=== PATIENT | male | born 1955 | race Caucasian/White ===

== ENCOUNTER 2018-02-12 18:05 | Inpatient (IN) ==
[2018-02-12] MEDS ORDERED: Morphine Sulfate Inj 2 MG/ML Vial IV.PUSH ONE (19:06)
--- NOTE | 2018-02-12 19:14 | ED ---
HPI General Chief complaint: Abdominal Pain Stated complaint: Abdominal pain/Bloating x 2 months Time Seen by Provider: 02/12/18 19:01 Source: patient Mode of arrival: ambulatory Limitations: no limitations History of Present Illness HPI narrative: 62yo M with PMH of recently diagnosed melanoma s/p excision by Dr. Little on 02/08/18, GERD, kidney stone here with c/o abdominal distension and pain for the last few days. Pain is diffuse. He had recent PET scans that were concerning for metastatic disease. Dr. Little had ordered an outpatient CT a/p at [facility] yesterday but pt does not know the result yet. He complains of nausea. Denies any fever, chest pain, sob, vomiting, dysuria, hematuria, focal weakness or numbness. Related Data Home Medications Medication Instructions Recorded Confirmed levothyroxine [Synthroid] 137 mcg PO DAILY 01/03/18 02/12/18 losartan 0 mg PO DAILY 01/03/18 02/12/18 metoprolol tartrate 0 mg PO DAILY 01/03/18 02/12/18 Allergies Allergy/AdvReac Type Severity Reaction Status Date / Time azithromycin AdvReac Migraine Verified 02/12/18 18:08 [From Zithromax Z-Mitchel] Review of Systems ROS: all other systems reviewed are negative [facility] Medical History Medical History Melanoma (Acute) History of high blood pressure (Acute) Hx of thyroid disease (Acute) Surgical History Surgical History H/O thyroidectomy (Acute) Social History Social History Substance History: Active Abuse Smoking Status: Former smoker How Often Do You Have a Drink Containing Alcohol: 4 or more times a week Recent Travel in [facility] within the Last 8 Weeks: No Recent Out of Country Travel within the Last 8 Weeks: No Substance Abuse Detail Alcohol: Substance Use Status: Active Route Used Substance Abuse: By Mouth Substance Frequency: Wine daily Immunization History Tetanus Immunization: >5 Years Exam Narrative Exam Narrative: GENERAL: 62yo M in mild distress. SKIN: Focused skin assessment warm/dry. HEAD: Atraumatic. Normocephalic. EYES: Pupils equal and round. No scleral icterus. No injection or drainage. ENT: No nasal bleeding or discharge. Mucous membranes pink and moist. NECK: Trachea midline. No JVD. CARDIOVASCULAR: Regular rate and rhythm. No murmur appreciated. RESPIRATORY: No accessory muscle use. Clear to auscultation. Breath sounds equal bilaterally. GASTROINTESTINAL: Abdomen softly distended. Mild ttp diffusely. No rebound tenderness or guarding. MUSCULOSKELETAL: Right shoulder sutures in place, no erythema, discharge. No obvious deformities. No clubbing. No cyanosis. NEUROLOGICAL: Awake and alert. No obvious cranial nerve deficits. Motor grossly within normal limits. Normal speech. PSYCHIATRIC: Appropriate mood and affect; insight and judgment normal. Course Initial Documented Vital Signs Temperature 99.2 F 02/12/18 18:09 Pulse Rate 89 02/12/18 18:09 Respiratory Rate 16 02/12/18 18:09 Blood Pressure 166/96 H 02/12/18 18:09 Pulse Oximetry 96 02/12/18 18:09 Last Documented Vital Signs Temperature 97.7 F 02/12/18 23:45 Pulse Rate 84 02/13/18 01:11 Respiratory Rate 14 02/13/18 01:11 Blood Pressure 125/83 02/13/18 01:11 Pulse Oximetry 98 02/13/18 01:11 Critical Care Time Critical Care Time: Yes Total Critical Care Time: 45 Attestation: Aggregate critical care time was 45 minutes. Time to perform other separately billable procedures was not included in the critical care time. My time did not include minutes spent treating any other patients simultaneously or on activities that did not directly contribute to the patient's treatment. The services I provided to this patient were to treat and/or prevent clinically significant deterioration that could result in: cardiovascular collapse or . I provided critical care services requiring my management, as noted below: Chart data review, documentation time, medication orders and management, vital sign assessments/reviewing monitor data, ordering and reviewing lab tests, ordering and interpreting/reviewing x-rays and diagnostic studies, care of the patient and discussion of the patient with the admitting physicians. Medical Decision Making MDM Narrative Medical decision making narrative: 62yo M with recently diagnosed melanoma s/p resection. Pt has been having abdominal pain and distension so his general surgeon Dr. Little ordered a CT a/p as outpatient and I was able to view the CT a/p w/wo contrast from [facility]. It showed abnormal appearance of distal thoracic esophagus and GE junction. This is hypermetabolic on recent PET and suspicious for a primary malignancy. Gastrohepatic lymphadenopathy, extensive omental caking and peritoneal carcinomatosis with a moderate amount of free fluid. This is likely the cause of his pain and distension. Will give pt IV morphine and zofran. Since pt just had a CT a/p yesterday, will just obtain an xray abdomen to r/o obstruction. Upon further questioning, pt said his abdominal distension has been going on for about a month. Last bowel movement was yesterday. Labs reviewed, no leukocytosis. H/H 11.7/36.6 which is decreased from last month. CMP unremarkable. Lipase normal. At 8:27pm, my nurse informed me that pt started complaining of chest pain. When I went to evaluate pt, he said pain is midsternal, sharp and pt is diaphoretic. EKG ordered and showed ST elevation in II, III, aVF and V4, V5. There is mild ST depression in I, aVL. Pt given aspirin, sublingual nitro and heparin bolus. Discussed with braided band assembler Dr. Pierce and accepted to his service. Pt will be emergently transferred to the cardiac laboratory [facility]. Pt reevaluated at bedside and his chest pain has improved to about a 2 out of 10 now. BP did go down to systolic in the 80s after nitroglycerin but improved to 133/76 after NS IVF. Pt denies any shortness of breath but is on oxygen. Troponin was added to the first lab and is elevated at 0.30. CXR negative. After patient went into the ambulance, [facility] called and pt was in vfib arrest. Pt was immediately defibrillated and compressions started. Pt opened his eyes and is awake and breathing on his own immediately after the defibrillation. No medication was given. Pt is on his way to the cardiac laboratory [facility] with his nurse. I informed Dr. Pierce of this event. Pt being transported to cardiac laboratory [facility] emergently. Medical Screen Exam Complete: Yes Emergency Medical Condition: Yes Differential Diagnosis Differential Diagnosis: Metastatic disease vs. obstruction vs. colitis vs. pancreatitis Lab Data Result diagrams: 02/12/18 19:10 02/12/18 19:10 Lab Results 02/12/18 02/12/18 02/12/18 Range/Units 19:10 19:10 19:28 CBC w Diff Auto diff final WBC 8.4 (4.0-11.0) th/mm3 RBC 4.14 L (4.50-5.90) mil/mm3 Hgb 11.7 L (13.0-17.0) gm/dL Hct 36.6 L (39.0-51.0) % MCV 88.4 (80.0-100.0) fL MCH 28.4 (27.0-34.0) pg MCHC 32.0 (32.0-36.0) % RDW 13.6 (11.6-17.2) % Plt Count 564 H (150-450) th/mm3 MPV 7.6 (7.0-11.0) fL Neut % (Auto) 77.4 H (16.0-70.0) % Lymph % (Auto) 13.7 (9.0-44.0) % [place] % (Auto) 7.6 (0.0-8.0) % Eos % (Auto) 0.9 (0.0-4.0) % Baso % (Auto) 0.4 (0.0-2.0) % Neut # (Auto) 6.5 (1.8-7.7) th/mm3 Lymph # (Auto) 1.2 (1.0-4.8) th/mm3 [place] # (Auto) 0.6 (0.0-0.9) th/mm3 Eos # (Auto) 0.1 (0.0-0.4) th/mm3 Baso # (Auto) 0.0 (0.0-0.2) th/mm3 WBC Differential . Differential Comment . PT (9.8-11.6) sec INR Ratio APTT (23.4-31.7) sec Sodium 136 (136-145) meq/L Potassium 4.1 (3.5-5.1) meq/L Chloride 101 (98-107) meq/L Carbon Dioxide 28.6 (21.0-32.0) meq/L Anion Gap 6 (5-15) meq/L BUN 7 (7-18) mg/dL Creatinine 0.76 (0.60-1.30) mg/dL Estimated GFR Greater than 89 (>89) mL/min Random Glucose 125 H (74-106) mg/dL Calcium 9.6 (8.5-10.1) mg/dL Magnesium (1.5-2.5) mg/dL Total Bilirubin 0.3 (0.2-1.0) mg/dL AST 19 (15-37) U/L ALT 18 (12-78) U/L Alkaline Phosphatase 66 (45-117) U/L Troponin I (0.02-0.05) ng/mL Total Protein 7.0 (6.4-8.2) g/dL Albumin 2.8 L (3.4-5.0) g/dL Lipase 131 (73-393) U/L Urine Color Yellow (Yellw/Straw) Urine Clarity Clear (Clear) Urine pH 5.5 (5.0-8.5) Ur Specific [place] Greater/equal 1.030 (1.002-1.035) Urine Protein Negative (Neg-Trace) mg/dL Urine Glucose (UA) Negative (Negative) mg/dL Urine Ketones Negative (Negative) mg/dL Urine Occult Blood Negative (Negative) Urine Nitrate Negative (Negative) Urine Bilirubin Negative (Negative) Urine Urobilinogen 0.2 (Less than 2) mg/dL Ur Leukocyte Esterase Negative (Negative) Urine RBC 0-3 (0-3) /hpf Urine WBC 0-5 (0-5) /hpf Ur Squamous Epith Cells 0-5 (0-5) /hpf Urine Mucus Many H (Occasional) /lpf Micro UA Comment Culture not ind Ur Microscopic Review Microscopic reviewed Urine Culture Comments Culture not ind Nasal Screen MRSA (PCR) (Negative) 02/12/18 02/12/18 02/12/18 Range/Units 20:31 20:40 20:52 CBC w Diff WBC (4.0-11.0) th/mm3 RBC (4.50-5.90) mil/mm3 Hgb (13.0-17.0) gm/dL Hct (39.0-51.0) % MCV (80.0-100.0) fL MCH (27.0-34.0) pg MCHC (32.0-36.0) % RDW (11.6-17.2) % Plt Count (150-450) th/mm3 MPV (7.0-11.0) fL Neut % (Auto) (16.0-70.0) % Lymph % (Auto) (9.0-44.0) % [place] % (Auto) (0.0-8.0) % Eos % (Auto) (0.0-4.0) % Baso % (Auto) (0.0-2.0) % Neut # (Auto) (1.8-7.7) th/mm3 Lymph # (Auto) (1.0-4.8) th/mm3 [place] # (Auto) (0.0-0.9) th/mm3 Eos # (Auto) (0.0-0.4) th/mm3 Baso # (Auto) (0.0-0.2) th/mm3 WBC Differential Differential Comment PT 10.3 (9.8-11.6) sec INR 1.0 Ratio APTT 27.0 (23.4-31.7) sec Sodium (136-145) meq/L Potassium (3.5-5.1) meq/L Chloride (98-107) meq/L Carbon Dioxide (21.0-32.0) meq/L Anion Gap (5-15) meq/L BUN (7-18) mg/dL Creatinine (0.60-1.30) mg/dL Estimated GFR (>89) mL/min Random Glucose (74-106) mg/dL Calcium 9.6 (8.5-10.1) mg/dL Magnesium 2.4 (1.5-2.5) mg/dL Total Bilirubin (0.2-1.0) mg/dL AST (15-37) U/L ALT (12-78) U/L Alkaline Phosphatase (45-117) U/L Troponin I 0.30 H (0.02-0.05) ng/mL Total Protein (6.4-8.2) g/dL Albumin (3.4-5.0) g/dL Lipase (73-393) U/L Urine Color (Yellw/Straw) Urine Clarity (Clear) Urine pH (5.0-8.5) Ur Specific [place] (1.002-1.035) Urine Protein (Neg-Trace) mg/dL Urine Glucose (UA) (Negative) mg/dL Urine Ketones (Negative) mg/dL Urine Occult Blood (Negative) Urine Nitrate (Negative) Urine Bilirubin (Negative) Urine Urobilinogen (Less than 2) mg/dL Ur Leukocyte Esterase (Negative) Urine RBC (0-3) /hpf Urine WBC (0-5) /hpf Ur Squamous Epith Cells (0-5) /hpf Urine Mucus (Occasional) /lpf Micro UA Comment Ur Microscopic Review Urine Culture Comments Nasal Screen MRSA (PCR) (Negative) 02/12/18 Range/Units 23:40 CBC w Diff WBC (4.0-11.0) th/mm3 RBC (4.50-5.90) mil/mm3 Hgb (13.0-17.0) gm/dL Hct (39.0-51.0) % MCV (80.0-100.0) fL MCH (27.0-34.0) pg MCHC (32.0-36.0) % RDW (11.6-17.2) % Plt Count (150-450) th/mm3 MPV (7.0-11.0) fL Neut % (Auto) (16.0-70.0) % Lymph % (Auto) (9.0-44.0) % [place] % (Auto) (0.0-8.0) % Eos % (Auto) (0.0-4.0) % Baso % (Auto) (0.0-2.0) % Neut # (Auto) (1.8-7.7) th/mm3 Lymph # (Auto) (1.0-4.8) th/mm3 [place] # (Auto) (0.0-0.9) th/mm3 Eos # (Auto) (0.0-0.4) th/mm3 Baso # (Auto) (0.0-0.2) th/mm3 WBC Differential Differential Comment PT (9.8-11.6) sec INR Ratio APTT (23.4-31.7) sec Sodium (136-145) meq/L Potassium (3.5-5.1) meq/L Chloride (98-107) meq/L Carbon Dioxide (21.0-32.0) meq/L Anion Gap (5-15) meq/L BUN (7-18) mg/dL Creatinine (0.60-1.30) mg/dL Estimated GFR (>89) mL/min Random Glucose (74-106) mg/dL Calcium (8.5-10.1) mg/dL Magnesium (1.5-2.5) mg/dL Total Bilirubin (0.2-1.0) mg/dL AST (15-37) U/L ALT (12-78) U/L Alkaline Phosphatase (45-117) U/L Troponin I (0.02-0.05) ng/mL Total Protein (6.4-8.2) g/dL Albumin (3.4-5.0) g/dL Lipase (73-393) U/L Urine Color (Yellw/Straw) Urine Clarity (Clear) Urine pH (5.0-8.5) Ur Specific [place] (1.002-1.035) Urine Protein (Neg-Trace) mg/dL Urine Glucose (UA) (Negative) mg/dL Urine Ketones (Negative) mg/dL Urine Occult Blood (Negative) Urine Nitrate (Negative) Urine Bilirubin (Negative) Urine Urobilinogen (Less than 2) mg/dL Ur Leukocyte Esterase (Negative) Urine RBC (0-3) /hpf Urine WBC (0-5) /hpf Ur Squamous Epith Cells (0-5) /hpf Urine Mucus (Occasional) /lpf Micro UA Comment Ur Microscopic Review Urine Culture Comments Nasal Screen MRSA (PCR) Not detected (Negative) Imaging Data Radiologist's impression: Abdomen X-Ray 02/12/18 19:18 CONCLUSION: No acute findings. There is residual contrast in large bowel. Chest X-Ray 02/12/18 20:27 CONCLUSION: No acute findings. Discharge Plan Discharge Disposition Patient Disposition: ED Admit(ED Internal Use Only) Discharge Order Discharge Orders: ED Use Only Admit Order (Routine); Ordered 02/12/18 Ordered By: Danielle Dover Discharge Details Diagnosis: ST elevation (STEMI) myocardial infarction Physicians Team ED Provider: Danielle Dover Primary Care Provider: Jones Little Attending Provider: Srinath Pierce Other Providers: Edward Hawk Status ED Status: Left Department Discharge Information Discharge Date/Time: 02/12/18 21:07
[2018-02-12] MEDS ORDERED: Morphine Sulfate Inj 2 MG/ML Vial IM ONE (19:39)
[2018-02-12 19:43] LABS: Bilirubin,Urine Negative (Negative); Clarity,Urine Clear (Clear); Color,Urine Yellow (Yellw/Straw); Glucose,Urine (UA) Negative (Negative); Leukocyte Esterase,Urine Negative (Negative); Nitrite,Urine Negative (Negative); PH,Urine 5.5 (5.0-8.5); Specific Gravity,Urine Greater/Equal 1.030 (1.002-1.035); Urobilinogen,Urine 0.2 mg/dL (Less than 2)
[2018-02-12 19:48] LABS: Mucus,Urine Many /lpf (Occasional); RBC,Urine 0-3 /hpf (0-3); Squamous Epithelial Cell,Urine 0-5 /hpf (0-5); WBC,Urine 0-5 /hpf (0-5)
[2018-02-12 20:14] LABS: Baso % (Auto) 0.4 % (0.0-2.0); Eos # (Auto) 0.1 th/mm3 (0.0-0.4); Eos % (Auto) 0.9 % (0.0-4.0); Hematocrit 36.6 % (39.0-51.0); Hemoglobin 11.7 gm/dL (13.0-17.0); Lymph # (Auto) 1.2 th/mm3 (1.0-4.8); Lymph % (Auto) 13.7 % (9.0-44.0); Mean Corpuscular Hemoglobin 28.4 pg (27.0-34.0); Mean Corpuscular Volume 88.4 fL (80.0-100.0); Mean Platelet Volume 7.6 fL (7.0-11.0); Mono # (Auto) 0.6 th/mm3 (0.0-0.9); Mono % (Auto) 7.6 % (0.0-8.0); Neut # (Auto) 6.5 th/mm3 (1.8-7.7); Neut % (Auto) 77.4 % (16.0-70.0); Platelet Count 564 th/mm3 (150-450); Red Blood Count 4.14 mil/mm3 (4.50-5.90); Red Cell Distribution Width 13.6 % (11.6-17.2); White Blood Count 8.4 th/mm3 (4.0-11.0)
[2018-02-12 20:15] LABS: Chloride 101 meq/L (98-107); Potassium 4.1 meq/L (3.5-5.1); Sodium 136 meq/L (136-145)
--- NOTE | 2018-02-12 20:15 | XR ---
EXAM DATE: 02/12/2018 8:06 PM EST AGE/SEX: 62 years / Male INDICATIONS: Abdominal pain and distention. No bowel movement for four days. CLINICAL DATA: This is the patient's initial encounter. Patient reports that signs and symptoms have been present for 4 - 6 days and indicates a pain score of 10/10. MEDICAL/SURGICAL HISTORY: Hypertension. None. COMPARISON: No prior exams available for comparison. FINDINGS: Supine and upright views of the abdomen were performed. The abdominal bowel gas pattern is normal. No air-fluid levels are seen. No abnormal masses, calcifications, or organomegaly is seen. The visualiz ed lower lungs are clear. No evidence of free intraperitoneal gas. The osseous structures are unremar kable. CONCLUSION: No acute findings. There is residual contrast in large bowel. Electronically signed by: Daniel Abreu MD 02/12/2018 8:13 PM EST
[2018-02-12 20:18] LABS: Calcium 9.6 mg/dL (8.5-10.1)
[2018-02-12 20:19] LABS: Albumin 2.8 g/dL (3.4-5.0); Anion Gap 6 meq/L (5-15); Blood Urea Nitrogen 7 mg/dL (7-18); Carbon Dioxide 28.6 meq/L (21.0-32.0); Glucose,Random 125 mg/dL (74-106); Lipase 131 U/L (73-393)
[2018-02-12 20:21] LABS: Alanine Aminotransferase 18 U/L (12-78); Aspartate Aminotransferase 19 U/L (15-37)
[2018-02-12 20:22] LABS: Glomerular Filtration Rate Greater Than 89 mL/min (>89)
[2018-02-12 20:24] LABS: Alkaline Phosphatase 66 U/L (45-117)
[2018-02-12] MEDS ORDERED: Aspirin 325 MG Tablet PO ONE (20:39)
[2018-02-12] MEDS ORDERED: Heparin 10,000 UNITS/10 ML Vial (for IV use) IV.PUSH STA (20:43)
--- NOTE | 2018-02-12 20:44 | XR ---
EXAM DATE: 02/12/2018 8:41 PM EST AGE/SEX: 62 years / Male INDICATIONS: Stemi alert. Chest pain. CLINICAL DATA: This is the patient's initial encounter. Patient reports that signs and symptoms have been present for 1 day and indicates a pain score of 9/10. MEDICAL/SURGICAL HISTORY: Hypertension. None. COMPARISON: No prior exams available for comparison. FINDINGS: A single AP view of the chest demonstrates the lungs to be symmetrically aerated without evidence of mass, infiltrate or effusion. The cardiomediastinal contours are unremarkable. Osseous structures a re intact. CONCLUSION: No acute findings. Electronically signed by: Daniel Abreu MD 02/12/2018 8:43 PM EST
[2018-02-12] MEDS ORDERED: Sod Chloride 0.9% Inj 1,000 ML IV.SIG SCH (21:00)
[2018-02-12 21:12] LABS: Calcium 9.6 mg/dL (8.5-10.1); Magnesium 2.4 mg/dL (1.5-2.5)
[2018-02-12 21:15] LABS: Prothrombin Time 10.3 sec (9.8-11.6)
[2018-02-12] MEDS ORDERED: Iohexol 350 MG/ML 100 ML Vial (for Cath Lab) IVCONTRAST ONE (21:23)
[2018-02-12] MEDS ORDERED: Heparin/NS PF Inj 1,000 ML ONE (21:25)
[2018-02-12] MEDS ORDERED: fentaNYL Citrate Inj 100 MCG/2 ML Ampul ONE (21:40)
[2018-02-12] MEDS ORDERED: Heparin/NS PF Inj 500 ML ONE (22:11)
[2018-02-12] MEDS ORDERED: Cangrelor Inj 50,000 MCG Vial ONE (22:46)
--- NOTE | 2018-02-12 23:22 | CATHPROC ---
[employer] [facility] Report Study Information Study Number Admission Scheduled Start Study Start [id number] Feb 12 2018 6:05PM 02/12/2018 Feb 12 2018 9:18PM [place] [facility] Cardiac Catheterization Admit Source Facility Department Emergency department [facility] - Bag Loader Machine Operator Physician and Clinical Staff Initial Srinath Roberts Retirement Actuary Nitesh Eduardo RCIS(BS) Retirement Actuary Jama Perla,RN Recorder Brayan Alegria,RT(R) Scrub Shanel Rajput RCIS TECH2 Procedures Performed Procedure Location (Site) Vessel Name Angiogram LV LV Ventricle Coronary Angiograms LCA Left Coronary Coronary Angiograms RCA Right Coronary L Heart Cath PTCA LAD Mid Left Coronary PTCA LAD Prox Left Coronary Stent LAD Mid Left Coronary Stent LAD Prox Left Coronary Wire insertion Fem Art (right) Femoral Art Equipment Time Mud Grinder Description Size Mfg Part Number Used/Scraped PERCLOSE, PRO GLIDE CLOSER 22:59 [employer]KES [employer] FR 6 [id number] *[id number] Used DEVICE WIRE, BALANCE MIDDLEWEIGHT [id number] 22:31 [employer] 190CM Used 190CM *[id number] WIRE, BALANCE MIDDLEWEIGHT [id number] 22:00 [employer] 190CM Used 190CM *[id number] TRANSDUCER, TRUWAVE [id number] 21:24 WILDER HURD * Used W/STOCKCOCK *[id number] [id number] *[id number] [id number] *[id number] *[id number] *[id number] 21:24 Quantine BLANKET,WARM AIR CCL * Used *[id number] 21:24 [employer]ine PACK, CCL CUSTOM * Used *[id number] 21:24 Rise Art PACER PEN, SKIN DUAL W/ RULER * Used *[id number] 22:17 MEDTRONIC BALLOON, 2.0 X 12MM EUPHORA 12MM Used *[id number] BALLOON, 3.5 X 8MM NC [id number] 22:45 MEDTRONIC 8MM Used EUPHORA *[id number] EXPORTAP 22:02 MEDTRONIC CATHETER, EXPORT ASPIRATON Used *[id number] 22:24 MEDTRONIC STENT, 2.5 26 INTEGRITY 2.5 26 Used *[id number] 22:34 MEDTRONIC STENT, 3.5 12 INTEGRITY 3.5 12 Used *[id number] 22:18 Heppe Medical Chitosan MEDICAL 30 YANET INDEFLATOR Used *[id number] 22:03 [employer] MEDICAL SHEATH, FR6.5 PRELUDE 11CM FR 6.5 [id number] Used *[id number] 21:24 [employer] Ch[employer] MEDICAL WIRE, 3MMJ .035 180CM 180CM Used *[id number] PROBE COVER, STERILE [id number] 21:24 [employer] MEDICAL * Used ULTRASOUND W/ GEL *[id number] 21:24 NAMIC MANIFOLD, 4 PORT * Used *[id number] 21:24 NAMIC TUBING, HIGH PRESSURE 48" 48" Used *[id number] 21:24 NYCOMED OMNIPAQUE, 350 MG, 150ML 150ML [id number] Used 22:51 NYCOMED OMNIPAQUE, 350 MG, 50ML 50ML [id number] Used [id number] 21:24 TERUMO MEDICAL SHEATH, FR5 TERUMO (10CM) FR 5 Used *[id number] Equipment Model, Serial, Lot Number and Expiration Data Description Model Number Serial Number Lot Number Expiration Date BALLOON, 3.5 X 8MM NC EUPHORA [id number] 04-25-2019 CATHETER, EXPORT ASPIRATON [id number] 11-14-2019 STENT, 2.5 26 INTEGRITY [id number] 05-24-2019 STENT, 3.5 12 INTEGRITY [id number] 09-04-2019 History: Current Medications Medication Dosage/Unit Route Frequency Last Date/Time Taken 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 History: Allergies Allergy Reaction azithromycin Migraine History: Risk Factors Family History of Hypertension Dyslipidemia Previous NE Previous Heart Failure Premature CAD Yes No No No No Prior Valve Prior PCI Prior CABG Surgery No No No Cerebrovascular Peripheral Artery Chronic Lung On Dialysis Diabetes Disease Disease Disease No No No No No History: Symptoms/Diagnosis Selection Items Chest pain History: Stress Tests Stress or Imaging Studies Performed No History: Other Disease Selection Items Cancer HTN History: Other Current Smoker Method Quit Packs a Day Years Used Pack Years No Cigarettes 1 Years Ago 1 25 25 Labs Hgb (g/dl) Hct (%) RBC (MIL/MM3) WBC (l/cumm) Platelets (thousands) 11.60-17.00 35.00-51.00 4.00-5.90 4.00-11.00 150.00-450.00 11.7 36.6 4.1 8.4 500 Glucose (mg/dl) BUN (mg/dl) Creatinine (mg/dl) BUN:Creatinine (1:x) 74.00-106.00 7.00-18.00 0.50-1.30 10.00-20.00 125 7 0.7 10 Na (meq/l) K (meq/l) Cl (meq/l) CO2 (mmol/L) Ca (mg/dl) 136.00-145.00 3.50-5.10 98.00-107.00 21.00-32.00 8.50-10.10 136 4.1 101 28.6 9.6 PT (sec) PTT (sec) INR (PTT:PT) 9.80-11.60 24.30-30.10 0.90-1.10 10.3 27 1 Troponin I (ng/ml) CPK-MB (ng/ML) 0.02-0.05 0.50-3.60 0.3 Not Drawn Medication Medication Total Dose (Bolus/Oral) Medication Total Dosage/Unit 1% XYLOCAINE 20 mL BRILLINTA 180 mg HEPARIN 6000 units NTG (IC) 500 mcg Medications (Bolus/Oral) Medication Time Given Dosage/Unit Administered By Reason 1% XYLOCAINE 02/12/2018 9:54:16 PM 20 mL Srinath Pierce 20 mL 1% XYLOCAINE given in lab by Srinath Pierce in Right Groin via Subcutaneous. 02/12/2018 10:11:02 HEPARIN 6000 units Srinath Pierce PM 6000 units HEPARIN given in lab by Srinath Pierce in Right Antecubital via Peripheral IV. 02/12/2018 10:13:47 NTG (IC) 200 mcg Shanel Rajput PM 200 mcg NTG (IC) given in lab by Shanel Rajput RCIS TECH2 via Intra-coronary. 02/12/2018 10:27:41 NTG (IC) 100 mcg Shaenl Rajput PM 100 mcg NTG (IC) given in lab by Shanel Rajput RCIS TECH2 via Intra-coronary. 02/12/2018 10:48:04 NTG (IC) 200 mcg Shanel Rajput PM 200 mcg NTG (IC) given in lab by [place], Shanel, RUBY ON RAILS ENGINEER TECH2 via Intra-coronary. 02/12/2018 11:00:00 BRILLINTA 180 mg Jama Perla PM 180 mg BRILLINTA given in lab by Jama Perla, SHANNON in Per mouth via Oral. Medication (Drip) Medication Time Given Dosage/Unit Concentration/Unit Diluent (ml) Solution IV Solutions 02/12/2018 9:36:52 PM 0 mL (IV) 1000 NaCl .9 Patient arrived on IV Solutions in Right Antecubital via Peripheral IV. Pump/Drip Flow = 20 ml/hr usi ng NaCl .9. 02/12/2018 10:50:43 KENGREAL BOLUS 14 mL PM 14 mL KENGREAL BOLUS given in lab by Jama Perla, SHANNON in Right Antecubital via Peripheral IV. 02/12/2018 10:56:56 KENGREAL DRIP 4 mcg/kg/min 50 mg 250 NaCl .9 PM 4 mcg/kg/min KENGREAL DRIP given in lab by Jama Perla RN in Right Antecubital via Peripheral IV. Pump/Drip Flow = 113.16 ml/hr using NaCl .9 with a concentration of 50 mg in 250 ml. Initial Case Assessment Cardiovascular HR Rhythm NIBP Chest Pain 84 Irregular 128/91 2 Edema Present Skin color Skin None Normal Warm Dry Circulatory - Right Pulses Dorsalis Pedis Femoral 2 2 Scale (0,1,2,3,4,d) Circulatory - Left Pulses Dorsalis Pedis Femoral 2 2 Scale (0,1,2,3,4,d) Neurological State Oriented to time-place- Alert Moves all extremities person Respiration - General Respiration Rate SpO2 (%) O2 (lpm) (B/min) 21 93 0 Final Case Assessment Cardiovascular HR Rhythm NIBP Chest Pain 81 Sinus 135/91 0 Edema Present Skin color Skin None Normal Warm Dry Circulatory - Right Pulses Dorsalis Pedis Femoral 2 2 Scale (0,1,2,3,4,d) Circulatory - Left Pulses Dorsalis Pedis Femoral 2 2 Scale (0,1,2,3,4,d) Neurological State Oriented to time-place- Alert Moves all extremities person Respiration - General Respiration Rate SpO2 (%) O2 (lpm) (B/min) 16 98 0 Chronological Log Time Study Chronological Log 21:23:10 Emergency Room notified that Bag Loader Machine Operator is ready. 21:31:23 Patient arrived via Bed. 21:36:28 Patient Name, D.O.B, / Armband Verified By R.N. 21:36:28 Consent signed by the physician and the patient and verified by the Bag Loader Machine Operator staff. 21:36:29 Pre-op and post- op instructions given; patient acknowledges understanding of instructions. 21:36:29 Verbal Stimulation=2 Physical Stimulation=2 Airway=2 Respiration=2 TOTAL=8. (0=absent, 1=li mited, 2=present) 21:36:30 Presedation assessment performed by Bag Loader Machine Operator RN. 21:36:36 Patient has been NPO for Less than 6Hrs. 21:36:37 Skin Breakdown- none per patient. 21:36:38 Patient Warmer Placed on the Table. 21:36:41 Disposable Defibrillator Pads Placed On Patient. 21:36:42 Haroon Prominences Protected 21:36:44 A # 20 IV was noted in the Antecubital (left). Grade = 0 21:36:51 A # 20 IV was noted in the Antecubital (right). Grade = 0 21:36:52 Patient arrived on IV Solutions in Right Antecubital via Peripheral IV. Pump/Drip Flow = 20 ml/hr using NaCl .9. 21:36:57 History and physical on the chart or being dictated. Assessment: Initial Case, HR=84 BPM, Rhythm=Irregular, CINU=769/91 mmhg, Chest Pain=2, Edema=No ne, Color=Normal, Skin = Warm, Dry Right Pulses: Leonidas Ped=2, Femoral=2 21:36:58 Left Pulses: Leonidas Ped=2, Femoral=2 Neurological: State=Alert, Ox3, RINALDI Respiration: Resp=21 B/min, SpO2=93 %, O2=0 lpm Vitals capture started with the following parameters, Patient=Adult, Interval=5 min, Initial Pr baekgl=518 mmHg, 21:37:00 Deflation Rate=5 mmHg, Cuff placed on Right Arm 21:37:30 Reference ECG taken 21:37:34 HR=83 bpm, PBAC=621/91 mmhg, SpO2=93.0 %, Resp=23 B/min, Pain=2, Tanna=10, De Souza=2 21:38:27 paged 21:39:46 Bilateral groins prepped with 2% chlorhexidine, and draped after a 3 minute waiting time. 21:41:45 MD responded 21:42:37 HR=83 bpm, TMVP=431/90 mmhg, SpO2=93.0 %, Resp=15 B/min, Pain=2, Tanna=10, De Souza=2 21:43:15 Pressure channel 1 zeroed. 21:47:34 HR=81 bpm, DSXZ=320/93 mmhg, SpO2=92.0 %, Resp=11 B/min, Pain=2, Tanna=10, De Souza=2 21:48:50 MD arrived. 21:52:35 HR=82 bpm, QQDU=753/93 mmhg, SpO2=98.0 %, Resp=9 B/min, Pain=2, Tanna=10, De Souza=2 Time Out. Correct patient, correct procedure, correct physician, labs, allergies, and equipment verified with laboratory director 21:53:37 team present. Fire risk assesment completed (see hard stop sheet for coding). Time Out Conc urred by MD and individual staff in procedure. 21:54:16 Case Start 21:54:16 20 mL 1% XYLOCAINE given in lab by Srinath Pierce in Right Groin via Subcutaneous. 21:54:26 Access site was Right Femoral Artery. 21:54:52 A SHEATH, FR5 TERUMO (10CM) FR 5 was advanced into the Fem Art (right) using the Percutaneo us technique. A AR MOD INFINITI CATHETER FR 5 was advanced over a wire. OMNIPAQUE, 350 MG, 150ML 150ML was us ed for 21:55:43 injections. Recorded Pressure: Ao, HR=82, Condition=Condition 1 21:56:44 (Aorta) Ao 110/75/91 21:57:01 The RCA was injected and visualized at various angles. OMNIPAQUE, 350 MG, 150ML 150ML used . 21:57:38 HR=75 bpm, DBAH=434/83 mmhg, SpO2=98.0 %, Resp=8 B/min, Pain=2, Tanna=10, De Souza=2 21:58:02 Catheter was removed A JL 4.0 INFINITI CATHETER FR 5 was advanced over a wire. OMNIPAQUE, 350 MG, 150ML 150ML was us ed for 21:58:10 injections. 21:59:10 The LCA was injected and visualized at various angles. OMNIPAQUE, 350 MG, 150ML 150ML used . 22:01:51 Catheter was removed A SHEATH, FR6.5 PRELUDE 11CM FR 6.5 was exchanged in the Fem Art (right). This was necessary in order to 22:02:17 accomodate a larger catheter. 22:02:37 HR=85 bpm, KREB=227/85 mmhg, SpO2=98.0 %, Resp=9 B/min, Pain=2, Tanna=10, De Souza=2 A XB 4.0 GUIDE CATHETER FR 6 was advanced over a wire. OMNIPAQUE, 350 MG, 150ML 150ML was used for 22:04:53 injections. 22:07:14 A WIRE, BALANCE MIDDLEWEIGHT 190CM 190CM was inserted via Fem Art (right). 22:07:38 HR=83 bpm, XZYL=443/92 mmhg, SpO2=99.0 %, Resp=11 B/min, Pain=2, Tanna=10, De Souza=2 22:09:21 Interventional wire has crossed the lesion 22:10:47 Aspiration catheter inserted 22:11:02 6000 units HEPARIN given in lab by Srinath Pierce in Right Antecubital via Peripheral IV. 22:11:27 Aspiration in progress 22:12:37 Catheter was removed 22:12:39 HR=85 bpm, KSKR=114/83 mmhg, SpO2=99.0 %, Resp=18 B/min, Pain=2, Tanna=10, De Souza=2 22:13:47 200 mcg NTG (IC) given in lab by Shanel Rajput RCIS TECH2 via Intra-coronary. A BALLOON, 2.0 X 12MM EUPHORA 12MM was inserted over WIRE, BALANCE MIDDLEWEIGHT 190CM 190CM via the 22:15:01 LAD Mid. A BALLOON, 2.0 X 12MM EUPHORA 12MM over a WIRE, BALANCE MIDDLEWEIGHT 190CM 190CM in the LAD Mid was 22:17:17 inflated using a 30 YANET INDEFLATOR at 16 yanet for 10 sec. 22:17:38 HR=85 bpm, TTNY=231/85 mmhg, SpO2=96.0 %, Resp=25 B/min, Pain=2, Tanna=10, De Souza=2 A BALLOON, 2.0 X 12MM EUPHORA 12MM over a WIRE, BALANCE MIDDLEWEIGHT 190CM 190CM in the LAD Mid was 22:17:48 inflated using a 30 YANET INDEFLATOR at 16 yanet for 14 sec. A BALLOON, 2.0 X 12MM EUPHORA 12MM over a WIRE, BALANCE MIDDLEWEIGHT 190CM 190CM in the LAD Mid was 22:18:01 inflated using a 30 YANET INDEFLATOR at 16 yanet for 8 sec. A BALLOON, 2.0 X 12MM EUPHORA 12MM over a WIRE, BALANCE MIDDLEWEIGHT 190CM 190CM in the LAD Mid was 22:18:15 inflated using a 30 YANET INDEFLATOR at 16 yanet for 8 sec. A BALLOON, 2.0 X 12MM EUPHORA 12MM over a WIRE, BALANCE MIDDLEWEIGHT 190CM 190CM in the LAD Mid was 22:18:26 inflated using a 30 YANET INDEFLATOR at 16 yanet for 8 sec. A BALLOON, 2.0 X 12MM EUPHORA 12MM over a WIRE, BALANCE MIDDLEWEIGHT 190CM 190CM in the LAD Mid was 22:20:07 inflated using a 30 YANET INDEFLATOR at 16 yanet for 12 sec. A BALLOON, 2.0 X 12MM EUPHORA 12MM over a WIRE, BALANCE MIDDLEWEIGHT 190CM 190CM in the LAD Mid was 22:20:20 inflated using a 30 YANET INDEFLATOR at 16 yanet for 12 sec. A BALLOON, 2.0 X 12MM EUPHORA 12MM over a WIRE, BALANCE MIDDLEWEIGHT 190CM 190CM in the LAD Mid was 22:20:37 inflated using a 30 YANET INDEFLATOR at 16 yanet for 8 sec. A BALLOON, 2.0 X 12MM EUPHORA 12MM over a WIRE, BALANCE MIDDLEWEIGHT 190CM 190CM in the LAD Mid was 22:20:51 inflated using a 30 YANET INDEFLATOR at 16 yanet for 9 sec. 22:21:18 The LCA was injected and visualized at various angles. OMNIPAQUE, 350 MG, 150ML 150ML used . A BALLOON, 2.0 X 12MM EUPHORA 12MM over a WIRE, BALANCE MIDDLEWEIGHT 190CM 190CM in the LAD Mid was 22:21:43 inflated using a 30 YANET INDEFLATOR at 16 yanet for 14 sec. 22:22:20 Balloon Removed. 22:22:41 HR=82 bpm, WQAY=382/82 mmhg, SpO2=97.0 %, Resp=12 B/min, Pain=2, Tanna=10, De Souza=2 An STENT, 2.5 26 INTEGRITY 2.5 26 Bare Metal Stent was inserted through a XB 4.0 GUIDE CATHETER FR 6 over a 22:24:38 WIRE, BALANCE MIDDLEWEIGHT 190CM 190CM. A STENT, 2.5 26 INTEGRITY 2.5 26 was deployed using a 30 YANET INDEFLATOR at 20 atmospheres for 5 0 seconds in 22:25:44 the LAD Mid. 22:27:03 Delivery device removed 22:27:40 HR=81 bpm, EURP=052/81 mmhg, BnB8=992.0 %, Resp=4 B/min, Pain=2, Tanna=10, De Souza=2 22:27:41 100 mcg NTG (IC) given in lab by Shanel Rajput RCIS TECH2 via Intra-coronary. 22:29:20 The LCA was injected and visualized at various angles. OMNIPAQUE, 350 MG, 150ML 150ML used . 22:31:48 A WIRE, BALANCE MIDDLEWEIGHT 190CM 190CM was inserted via Fem Art (right). 22:32:41 HR=81 bpm, OLNV=741/79 mmhg, SpO2=97.0 %, Resp=12 B/min, Pain=2, Tanna=10, De Souza=2 An STENT, 3.5 12 INTEGRITY 3.5 12 Bare Metal Stent was inserted through a XB 4.0 GUIDE CATHETER FR 6 over a 22:35:07 WIRE, BALANCE MIDDLEWEIGHT 190CM 190CM. A STENT, 3.5 12 INTEGRITY 3.5 12 was deployed using a 30 YANET INDEFLATOR at 11 atmospheres for 2 8 seconds in 22:36:09 the LAD Prox. 22:36:44 Delivery device removed 22:37:40 HR=81 bpm, EUOV=973/81 mmhg, SpO2=98.0 %, Resp=7 B/min, Pain=2, Tanna=10, De Souza=2 22:37:50 Wire removed 22:39:14 A WIRE, BALANCE MIDDLEWEIGHT 190CM 190CM was inserted via Fem Art (right). 22:39:20 Interventional wire has crossed the lesion 22:39:31 The LCA was injected and visualized at various angles. OMNIPAQUE, 350 MG, 150ML 150ML used . A BALLOON, 2.0 X 12MM EUPHORA 12MM was inserted over WIRE, BALANCE MIDDLEWEIGHT 190CM 190CM via the 22:42:37 DIAG Prox. 22:42:39 HR=89 bpm, XBDT=410/87 mmhg, SpO2=99.0 %, Resp=9 B/min, Pain=2, Tanna=10, De Souza=2 A BALLOON, 2.0 X 12MM EUPHORA 12MM over a WIRE, BALANCE MIDDLEWEIGHT 190CM 190CM in the LAD Pro x was 22:43:24 inflated using a 30 YANET INDEFLATOR at 16 yanet for 25 sec. A BALLOON, 2.0 X 12MM EUPHORA 12MM over a WIRE, BALANCE MIDDLEWEIGHT 190CM 190CM in the LAD Pro x was 22:43:38 inflated using a 30 YANET INDEFLATOR at 16 yanet for 10 sec. 22:44:19 The LCA was injected and visualized at various angles. OMNIPAQUE, 350 MG, 150ML 150ML used . A BALLOON, 3.5 X 8MM NC EUPHORA 8MM was inserted over WIRE, BALANCE MIDDLEWEIGHT 190CM 190CM vi a the 22:45:02 LAD Prox. A BALLOON, 3.5 X 8MM NC EUPHORA 8MM over a WIRE, BALANCE MIDDLEWEIGHT 190CM 190CM in the LAD Pr ox was 22:46:21 inflated using a 30 YANET INDEFLATOR at 12 yanet for 32 sec. 22:47:22 Balloon Removed. 22:47:41 The LCA was injected and visualized at various angles. OMNIPAQUE, 350 MG, 150ML 150ML used . 22:47:43 HR=85 bpm, KTND=378/97 mmhg, SpO2=99.0 %, Resp=10 B/min, Pain=2, Tanna=10, De Souza=2 22:47:57 Wire removed 22:47:58 Wire removed 22:48:04 200 mcg NTG (IC) given in lab by Shanel Rajput RCIS TECH2 via Intra-coronary. 22:48:58 The LCA was injected and visualized at various angles. OMNIPAQUE, 350 MG, 150ML 150ML used . 22:49:14 Catheter was removed 22:50:43 14 mL KENGREAL BOLUS given in lab by Jama Perla RN in Right Antecubital via Peripheral IV. A PIGTAIL ANG. INFINITI CATHETER FR 5 was advanced over a wire. OMNIPAQUE, 350 MG, 50ML 50ML wa s used for 22:51:16 injections. Recorded Pressure: LV, HR=82, Condition=Condition 1 22:52:32 (Left Ventricle) LV 112/6/18 22:53:10 HR=86 bpm, EQBS=972/90 mmhg, SpO2=97.0 %, Resp=18 B/min, Pain=2, Tanna=10, De Souza=2 22:54:14 The LV was injected at 10 cc/sec for a total of 30. OMNIPAQUE, 350 MG, 50ML 50ML used. Recorded Pressure: LV, Ao, HR=86, Condition=Condition 1 22:55:50 (Left Ventricle) LV 117/10/20, (Aorta) Ao 114/76/95 4 mcg/kg/min KENGREAL DRIP given in lab by Jama Perla, SHANNON in Right Antecubital via Peripher al IV. Pump/Drip Flow 22:56:56 = 113.16 ml/hr using NaCl .9 with a concentration of 50 mg in 250 ml. 22:56:59 An injection in the Fem Art (right) was made through the SHEATH, FR6.5 PRELUDE 11CM FR 6.5. 22:57:43 HR=85 bpm, BFPC=205/87 mmhg, SpO2=96.0 %, Resp=34 B/min, Pain=2, Tanna=10, De Souza=2 22:58:53 PERCLOSE, PRO GLIDE CLOSER DEVICE FR 6 placement in the Fem Art (right) 22:59:10 Case End (Physician broke scrub) 22:59:49 No case complications noted. 22:59:52 Cine recording checked. 22:59:59 Sterile dressing applied to site 23:00:00 180 mg BRILLINTA given in lab by Jama Perla, RN in Per mouth via Oral. 23:01:51 Implantable Device card placed in patient's chart. Assessment: Final Case, HR=81 BPM, Rhythm=Sinus, FVBP=084/91 mmhg, Chest Pain=0, Edema=None, Color=Normal, Skin = Warm, Dry Right Pulses: Leonidas Ped=2, Femoral=2 23:01:58 Left Pulses: Leonidas Ped=2, Femoral=2 Neurological: State=Alert, Ox3, RINALDI Respiration: Resp=16 B/min, SpO2=98 %, O2=0 lpm 23:02:44 HR=82 bpm, NTFX=050/91 mmhg, SpO2=98.0 %, Resp=16 B/min, Pain=2, Tanna=10, De Souza=2 23:06:52 A Left Heart Cath was performed. 23:07:02 Bedside Report will be given. 23:10:44 Patient moved to [facility] End Study - Contrast Media Used In Study Contrast Total Opened (mL) Total Used (mL) Total Wasted (mL) Omnipaque 350 350 200 150 End Study - Maximum Contrast Load Max Contrast Load (mL) 673.7 End Study - Radiation Exposure Fluoro Time (minutes) 15.0 End Study - Patient Disposition Complications Transferred To Interventional Outcome No Critical Care Bed successful
[2018-02-12] MEDS ORDERED: Misc Info for Pharmacy OTHER STA (23:26)
--- NOTE | 2018-02-12 23:48 | MB ---
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 Luna presented with abdominal distention, gas and chest pressure to the [facility]. His EKG was consistent with acute ST elevation myocardial infarction. [facility] and coronary intervention. He recently has had outpatient CAT scan, which may be consistent with esophageal/gastric tumor. PAST MEDICAL HISTORY: Melanoma, recent excision, hypertension, thyroid disease, history of thyroidectomy and recent melanoma excision. MEDICATIONS: 1. Levothyroxine. 2. Losartan. 3. Metoprolol. ALLERGIES: AZITHROMYCIN. SOCIAL HISTORY: The patient does not smoke, but used to smoke in the past. He drinks alcohol several times a week. 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 FAMILY HISTORY: Negative for heart disease. REVIEW OF SYSTEMS: Negative. PHYSICAL EXAMINATION: VITAL SIGNS: Blood pressure 131/79, pulse 82 and regular. HEENT: Negative, 2+ carotid upstrokes, no bruits. LUNGS: Clear. HEART: Regular with no murmur, gallop or rub. ABDOMEN: Soft murmur. EXTREMITIES: No edema with positive pulses. NEUROLOGICAL: Grossly nonfocal. EKG was reviewed and showed normal sinus rhythm and anterolateral and inferior ST elevations with high lateral and anteroseptal reciprocal changes. LABORATORY DATA: Hemoglobin 11.7. Potassium 4.1, creatinine 0.76, AST 19, ALT 18. Troponin 0.30. DIAGNOSES: 1. Acute ST elevation myocardial infarction. 2. Hypertension. 3. Recent surgery for melanoma. DISPOSITION: The patient will undergo emergent cardiac catheterization and coronary intervention if necessary. He understands the risks and benefits, and wishes to proceed. Srinath Pierce MD OQ/sj , 11:26 PM , 11:34 PM MTDD
--- NOTE | 2018-02-12 23:56 | MR ---
cc: Srinath Pierce MD DATE: 02/12/2018 INDICATION: Acute ST elevation myocardial infarction, typical angina, class IV angina. PROCEDURE PERFORMED: 1. Retrograde left heart catheterization with left ventriculography and selective coronary angiography. 2. Thrombectomy, angioplasty and stenting of the mid and proximal left anterior descending artery and angioplasty of the second diagonal artery. 3. Moderate sedation. ACCESS SITE: Right femoral artery. EQUIPMENT USED: 5 [place] pigtail catheter, 5 [place] JL4 and AR modified coronary catheters. Golden thrombectomy catheter, XB 4.0 guide, BMW wire x2, 2.0 balloon for predilatation, 2.5 x 26 mm Integrity bare-metal stent at 20 atmospheres to the mid LAD and 3.5 x 12 mm Integrity bare-metal stent at 11 atmospheres to the proximal left anterior descending artery, a 2.0 balloon for dilatation of the ostium of the second diagonal artery through the stent struts, LAD stent was then postdilated using 3.5 x 8 mm noncompliant balloon. MEDICATIONS: Versed IV, fentanyl IV, heparin IV, nitroglycerin IC, Kengreal IV, Brilinta 180 mg p.o. CONTRAST: Omnipaque 200 mL. COMPLICATIONS: None. BLOOD LOSS: Less than 10 mL. METHOD OF HEMOSTASIS: Angio-Seal closure. RESULTS: A. HEMODYNAMICS: Heart rate is 80 beats per minute, end-diastolic pressure 10 mm. Left ventricular 115/10. Aorta 115/76/95. B. LEFT VENTRICULOGRAPHY: Ejection fraction 45%. Wall motion distal, anterior and apical, severe hypokinesis. The rest of the ventricle is hyperdynamic, no mitral regurgitation. C. CORONARY ANGIOGRAPHY: Left main coronary artery is patent. Left anterior descending artery has 80% stenosis in the proximal portion distally to the second diagonal branch and is totally occluded in the mid portion. The LAD wraps around the apex. First diagonal artery is small, patent. Second diagonal artery is a large branch, which is patent. Left circumflex artery is patent. OM1 is small, patent. OM2 is patent. OM3 is patent. Right coronary artery has 30% stenosis of the mid portion. PDA patent. PLV patent. The stenosis in the mid LAD is 20 mm long. Pre-KATHY flow 0, post-KATHY flow 3, post-stenosis 0. Stenosis in the proximal LAD lesion length 8 mm. Pre-KATHY flow 3, post-KATHY flow 3, post-stenosis 0. D. POST-INTERVENTION ANGIOGRAPHY: Excellent patency of the stented segments and no evidence of dissection, thrombosis or embolization. DIAGNOSES: 1. Acute ST elevation myocardial infarction. 2. Coronary artery disease with total occlusion of the mid left anterior descending artery and severe stenosis of the proximal left anterior descending artery. 3. Mild left ventricular dysfunction consistent with ischemic cardiomyopathy. 4. Successful thrombectomy, angioplasty and stenting of the mid and proximal left anterior descending artery. 5. Moderate sedation. DISPOSITION: Mr. Dubon will be monitored on telemetry after his procedure. We will continue therapy with Brilinta and baby aspirin for a minimum of 1 month, ideally for 3 months. We will initiate aggressive modification of his cardiac risk factors. I will follow him for cardiology during his hospitalization. I will also see him back for followup in our office after discharge. MD HENRY Phan/marito , 11:20 PM , 11:30 PM RUSS
[2018-02-13] MEDS: Temazepam 15 MG Capsule PO PRN ×2 (00:16→20:19)
[2018-02-13] MEDS ORDERED: Chlorhexidine Gluconate 2% 1 Pack (2 Cloths) TOPICAL PRN (04:00)
[2018-02-13] MEDS: Chlorhexidine Gluconate 2% 1 Pack (2 Cloths) TOPICAL SCH (05:03)
[2018-02-13] MEDS ORDERED: Haloperidol Inj 5 MG/ML Ampul IV.PUSH PRN (08:33)
[2018-02-13] MEDS ORDERED: LORazepam 1 MG Tablet PO PRN (08:33)
[2018-02-13] MEDS: Metoprolol Tartrate 25 MG Tablet PO SCH ×2 (08:37→20:20)
[2018-02-13] MEDS: Folic Acid 1 MG Tablet PO SCH (09:24)
[2018-02-13] MEDS: Levothyroxine 112 MCG Tablet PO SCH (09:25)
[2018-02-13] MEDS: Multivitamin/Minerals Therapeutic Tablet PO SCH (09:26)
[2018-02-13 10:01] LABS: Baso % (Auto) 0.2 % (0.0-2.0); Eos % (Auto) 0.3 % (0.0-4.0); Hematocrit 31.4 % (39.0-51.0); Lymph # (Auto) 0.7 th/mm3 (1.0-4.8); Lymph % (Auto) 7.8 % (9.0-44.0); Mean Corpuscular HGB Conc 35.1 % (32.0-36.0); Mean Corpuscular Hemoglobin 31.1 pg (27.0-34.0); Mean Corpuscular Volume 88.4 fL (80.0-100.0); Mean Platelet Volume 7.2 fL (7.0-11.0); Mono # (Auto) 0.7 th/mm3 (0.0-0.9); Mono % (Auto) 7.5 % (0.0-8.0); Neut # (Auto) 7.4 th/mm3 (1.8-7.7); Neut % (Auto) 84.2 % (16.0-70.0); Platelet Count 455 th/mm3 (150-450); Red Blood Count 3.55 mil/mm3 (4.50-5.90); Red Cell Distribution Width 14.2 % (11.6-17.2); White Blood Count 8.8 th/mm3 (4.0-11.0)
[2018-02-13 10:29] LABS: Anion Gap 9 meq/L (5-15); Blood Urea Nitrogen 11 mg/dL (7-18); Calcium 9.1 mg/dL (8.5-10.1); Carbon Dioxide 24.4 meq/L (21.0-32.0); Chloride 106 meq/L (98-107); Glomerular Filtration Rate Greater Than 89 mL/min (>89); Glucose,Random 170 mg/dL (74-106); Potassium 4.1 meq/L (3.5-5.1); Sodium 139 meq/L (136-145)
[2018-02-13 10:30] LABS: Cholesterol 153 mg/dL (120-200)
[2018-02-13] MEDS ORDERED: Bisacodyl 10 MG Supp RECTAL PRN (10:36)
[2018-02-13 10:44] LABS: Creatine Kinase 1629 U/L (39-308); HDL Cholesterol 39.2 mg/dL (40.0-60.0); LDL Cholesterol,Calculated 93 mg/dL (0-99); Triglycerides 104 mg/dL (42-150)
[2018-02-13 11:08] LABS: Creatine Kinase MB 172.3 ng/mL (0.5-3.6)
--- NOTE | 2018-02-13 11:13 | P.HPIM ---
History of Present Illness Primary Care Physician: Jones Little MD Chief Complaint: abd pain History of Present Illness: This is a 62-year-old male with recently diagnosed melanoma in his back status post excision several days ago, GERD and kidney stones. He presents to the emergency department complaining of sharp constant abdominal discomfort associated with distention and for the past several days. Recent PET scan concerning for metastatic disease. Outpatient abdominal CT showed abnormal appearance of the distal thoracic esophagus and GE junction which is hypermetabolic on recent PET and suspicious for a primary malignancy. Patient scheduled for EGD next week by Dr. Roberson. In the ED, he developed sharp pain across his chest associated with diaphoresis and pallor. Stat EKG showed ST elevation in the inferior leads and lateral leads. Troponin 0.3. He also had a V. fib arrest status post defibrillation and CPR. Underwent emergent cardiac catheterization with stenting of the LAD and second diagonal by Dr. Pierce who requested medical service to admit the patient. At this time , patient is pain-free. He is tolerating diet passing gas and voiding without difficulty. He has ambulated in the room. Still has not had any bowel movement. Abdominal x-ray independently viewed by me with no obstruction. Chest x-ray independently reviewed by me with no acute cardiopulmonary disease. All other systems reviewed negative Inpatient Certification Inpatient Certification: I certify that the inpatient services were ordered in accordance with Medicare regulations governing the order. This includes certification that hospital inpatient services are reasonable and necessary and in the case of services not specified as inpatient-only under 42 CFR 419.22(n), that they are appropriately provided as inpatient services in accordance to with the 2-midnight benchmark under 43 CFR 412.3(e) Review of Systems Review of Systems: all other systems reviewed are negative [facility] Medical History Medical History Melanoma (Acute) History of high blood pressure (Acute) Hx of thyroid disease (Acute) Surgical History Surgical History H/O thyroidectomy (Acute) Family History Family History Other Skin cancer Social History Social History Substance History: No History of Abuse Second Hand Smoke Exposure: No Smoking Status: Former smoker Tobacco Type: Cigarettes How Often Do You Have a Drink Containing Alcohol: 4 or more times a week Recent Travel in [place] within the Last 8 Weeks: No Recent Out of Country Travel within the Last 8 Weeks: No Substance Abuse Detail Alcohol: Substance Use Status: Active Route Used Substance Abuse: By Mouth Substance Frequency: Wine daily Immunization History Tetanus Immunization: >5 Years Medications and Allergies Allergies Allergy/AdvReac Type Severity Reaction Status Date / Time azithromycin AdvReac Migraine Verified 02/12/18 18:08 [From Zithromax Z-Mitchel] Home Medications Medication Instructions Recorded Confirmed Type levothyroxine [Synthroid] 137 mcg PO DAILY 01/03/18 02/12/18 History losartan 0 mg PO DAILY 01/03/18 02/12/18 History metoprolol tartrate 0 mg PO DAILY 01/03/18 02/12/18 History Active Medications: Active Medications Al Hydroxide/Mg Hydroxide (Milk Of Magnesia Liq) 30 ml PO Q12H PRN PRN Reason: Mild Constipation Last Admin: 02/13/18 10:53 Dose: 30 ml Aspirin (Aspirin Chew) 81 mg PO DAILY [facility] Last Admin: 02/13/18 08:37 Dose: 81 mg Atorvastatin Calcium (Lipitor) 80 mg PO HS [facility] Last Admin: 02/13/18 00:02 Dose: 80 mg Bisacodyl (Dulcolax Supp) 10 mg RECTAL DAILY PRN PRN Reason: SEVERE CONSITIPATION Chlorhexidine Gluconate (Chlorhexidine 2% Cloth) 3 pack TOPICAL DAILY@0400 [facility] Stop: 02/18/18 03:59 Last Admin: 02/13/18 05:03 Dose: 3 pack Chlorhexidine Gluconate (Chlorhexidine 2% Cloth) 3 pack TOPICAL DAILY@0400 PRN PRN Reason: Extra cloth needed Stop: 02/18/18 03:59 Flumazenil (Romazecon Inj) 0.2 mg IV.PUSH Q1M PRN PRN Reason: OVERSEDATION Folic Acid (Folic Acid) 1 mg PO DAILY [facility] Stop: 02/18/18 08:59 Last Admin: 02/13/18 09:24 Dose: 1 mg Haloperidol Lactate (Haldol Inj) 1 mg IV.PUSH Q15M PRN PRN Reason: for severe agitation Lactulose (Lactulose Liq) 30 ml PO DAILY PRN PRN Reason: SEVERE CONSITIPATION Levothyroxine Sodium (Synthroid) 112 mcg PO DAILY@0600 [facility] Last Admin: 02/13/18 09:25 Dose: 112 mcg Levothyroxine Sodium (Synthroid) 25 mcg PO DAILY@0600 [facility] Last Admin: 02/13/18 09:54 Dose: 25 mcg Lorazepam (Ativan) 1 mg PO Q4H PRN PRN Reason: for CIWA 8-10 Lorazepam (Ativan) 2 mg PO Q2H PRN PRN Reason: for CIWA 11-14 Lorazepam (Ativan Inj) 2 mg IV.PUSH Q2H PRN PRN Reason: for CIWA 11-14 Lorazepam (Ativan Inj) 2 mg IV.PUSH Q1H PRN PRN Reason: for CIWA 15-20 Lorazepam (Ativan Inj) 2 mg IV.PUSH Q15M PRN PRN Reason: for CIWA > 20 Lorazepam (Ativan Inj) 1 mg IV.PUSH Q4H PRN PRN Reason: for CIWA 8-10 Losartan Potassium (Cozaar) 25 mg PO DAILY [facility] Last Admin: 02/13/18 09:26 Dose: 25 mg Metoprolol Tartrate (Lopressor) 25 mg PO BID [facility] Last Admin: 02/13/18 08:37 Dose: 25 mg Miscellaneous (Pill Splitter) 1 each OTHER UNSCH PRN PRN Reason: PILL SPLITTING Multivitamins/Minerals (Theragran-M) 1 tab PO DAILY [facility] Stop: 02/18/18 08:59 Last Admin: 02/13/18 09:26 Dose: 1 tab Nitroglycerin (Nitrostat Sl) 0.4 mg SL Q5M PRN PRN Reason: CHEST PAIN Last Admin: 02/12/18 20:43 Dose: 0.4 mg Senna/Docusate Sodium (Chantal-Colace) 1 tab PO BID [facility] Sennosides (Senokot) 17.2 mg PO Q12H PRN PRN Reason: Moderate Constipation Last Admin: 02/13/18 10:53 Dose: 17.2 mg Sodium Chloride (Ns Flush) 2 ml IV.FLUSH BID [facility] Last Admin: 02/13/18 09:25 Dose: 2 ml Sodium Chloride (Ns Flush) 2 ml IV.FLUSH PRN PRN PRN Reason: FLUSH AFTER USING IV ACCESS Last Admin: 02/13/18 09:25 Dose: 2 ml Temazepam (Restoril) 15 mg PO HS PRN PRN Reason: SLEEP Last Admin: 02/13/18 00:16 Dose: 15 mg Thiamine HCl (Vitamin B1) 100 mg PO DAILY [facility] Last Admin: 02/13/18 09:26 Dose: 100 mg Ticagrelor (Brilinta) 90 mg PO BID [facility] Last Admin: 02/13/18 08:37 Dose: 90 mg Physical Exam Vital signs: Last Vital Signs Temp 98.3 F 02/13/18 08:00 Pulse 79 02/13/18 11:00 Resp 22 02/13/18 11:00 BP 135/81 02/13/18 11:00 Pulse Ox 98 02/13/18 11:00 Intake & Output 02/11/18 02/12/18 02/13/18 02/14/18 06:59 06:59 06:59 06:59 Intake Total 480 / 480 Output Total 1080 / 1080 Balance -600 / -600 Weight 97 kg Narrative: GENERAL: Well-developed, well-nourished in no distress SKIN: Warm and dry. HEAD: Atraumatic. Normocephalic. EYES: Pupils equal and round. No scleral icterus. No injection or drainage. ENT: No nasal bleeding or discharge. Mucous membranes pink and moist. NECK: Trachea midline. No JVD. CARDIOVASCULAR: Regular rate and rhythm. RESPIRATORY: No accessory muscle use. Clear to auscultation. Breath sounds equal bilaterally. GASTROINTESTINAL: Abdomen soft, non-tender, distended MUSCULOSKELETAL: Extremities without clubbing, cyanosis, or edema. No obvious deformities. NEUROLOGICAL: Awake and alert. No obvious cranial nerve deficits. Motor grossly within normal limits. Five out of 5 muscle strength in the arms and legs. Normal speech. PSYCHIATRIC: Appropriate mood and affect; insight and judgment normal. Results Labs CBC & Chem 7: 02/13/18 09:30 02/13/18 09:30 Imaging Impressions Abdomen X-Ray 02/12/18 19:18 CONCLUSION: No acute findings. There is residual contrast in large bowel. Chest X-Ray 02/12/18 20:27 CONCLUSION: No acute findings. Caprini VTE Risk Assessment Caprini VTE Risk Assessment: Moderate/High Risk (score >= 2) Caprini Risk Assessment Model: Point Value = 1 Point Value = 2 Point Value = 3 Point Value = 5 Age 41-60 Minor surgery BMI > 25 kg/m2 Swollen legs Varicose veins or History of unexplained or recurrent spontaneous Oral contraceptives or hormone replacement Sepsis (< 1 month) Serious lung disease, including pneumonia (< 1 month) Abnormal pulmonary function Acute myocardial infarction Congestive heart failure (< 1 month) History of inflammatory bowel disease Medical patient at bed rest Age 61-74 Arthroscopic surgery Major open surgery (> 45 min) Laparoscopic surgery (> 45 min) Malignancy Confined to bed (> 72 hours) Immobilizing plaster cast Central venous access Age >= 75 History of VTE Family history of VTE Factor V Leiden Prothrombin [id number] Lupus anticoagulant Anticardiolipin antibodies Elevated serum homocysteine Heparin-induced thrombocytopenia Other congenital or acquired thrombophilia Stroke (< 1 month) Elective arthroplasty Hip, pelvis, or leg fracture Acute spinal cord injury (< 1 month) Prophylaxis Regimen: Total Risk Factor Score Risk Level Prophylaxis Regimen 0-1 Low Early ambulation 2 Moderate Order ONE of the following: *Sequential Compression Device (SCD) *Heparin 5000 units SQ BID 3-4 Higher Order ONE of the following medications: *Heparin 5000 units SQ TID *Enoxaparin/Lovenox 40 mg SQ daily (WT < 150 kg, CrCl > 30 mL/min) *Enoxaparin/Lovenox 30 mg SQ daily (WT < 150 kg, CrCl > 10-29 mL/min) *Enoxaparin/Lovenox 30 mg SQ BID (WT < 150 kg, CrCl > 30 mL/min) AND/OR *Sequential Compression Device (SCD) 5 or more Highest Order ONE of the following medications: *Heparin 5000 units SQ TID (Preferred with Epidurals) *Enoxaparin/Lovenox 40 mg SQ daily (WT < 150 kg, CrCl > 30 mL/min) *Enoxaparin/Lovenox 30 mg SQ daily (WT < 150 kg, CrCl > 10-29 mL/min) *Enoxaparin/Lovenox 30 mg SQ BID (WT < 150 kg, CrCl > 30 mL/min) AND *Sequential Compression Device (SCD) Assessment and Plan Plan This is a 62-year-old male with recently diagnosed melanoma in his back status post excision several days ago, GERD and kidney stones. He presents to the emergency department complaining of sharp constant abdominal discomfort associated with distention and for the past several days. Recent PET scan concerning for metastatic disease. Outpatient abdominal CT showed abnormal appearance of the distal thoracic esophagus and GE junction which is hypermetabolic on recent PET and suspicious for a primary malignancy. Patient scheduled for EGD next week by Dr. Roberson. In the ED, he developed sharp pain across his chest associated with diaphoresis and pallor. Stat EKG showed ST elevation in the inferior leads and lateral leads. Troponin 0.3. Developed Vfib arrest Status post defibrillation and CPR. Underwent emergent cardiac catheterization with stenting of the LAD and second diagonal by Dr. Pierce STEMI status post stenting of the LAD and second diagonal. Currently pain- free. Continue aspirin, Brilinta, Lopressor and nitrate. Risk factor modification. Follow-up A1c and lipid profile V. fib arrest status post defibrillation and CPR, secondary to above. EF 45% Abdominal pain and distention secondary to constipation. Abdominal x-ray shows no obstruction. Start bowel regimen DVT prophylaxis with SCD and early ambulation Patient can be transferred to [facility] when cleared by cardiology H&P: Quality VTE Deep Vein Thrombosis/Pulmonary Embolism Present on Admission: No
[2018-02-13 11:27] LABS: CKMB Percent 10.6 % (0.0-4.0)
--- NOTE | 2018-02-13 11:27 | P.PNCA ---
Subjective Interval history: Patient denies any CP, pressure, palpitations, dizziness, edema or SOB. Medications and Allergies Allergies Allergy/AdvReac Type Severity Reaction Status Date / Time azithromycin AdvReac Migraine Verified 02/12/18 18:08 [From Zhitu Z-Mitchel] Home Medications Medication Instructions Recorded Confirmed Type levothyroxine [Synthroid] 137 mcg PO DAILY 01/03/18 02/12/18 History losartan 0 mg PO DAILY 01/03/18 02/12/18 History metoprolol tartrate 0 mg PO DAILY 01/03/18 02/12/18 History Active Medications: Active Medications Al Hydroxide/Mg Hydroxide (Milk Of Magnesia Liq) 30 ml PO Q12H PRN PRN Reason: Mild Constipation Last Admin: 02/13/18 10:53 Dose: 30 ml Aspirin (Aspirin Chew) 81 mg PO DAILY [facility] Last Admin: 02/13/18 08:37 Dose: 81 mg Atorvastatin Calcium (Lipitor) 80 mg PO HS [facility] Last Admin: 02/13/18 00:02 Dose: 80 mg Bisacodyl (Dulcolax Supp) 10 mg RECTAL DAILY PRN PRN Reason: SEVERE CONSITIPATION Chlorhexidine Gluconate (Chlorhexidine 2% Cloth) 3 pack TOPICAL DAILY@0400 [facility] Stop: 02/18/18 03:59 Last Admin: 02/13/18 05:03 Dose: 3 pack Chlorhexidine Gluconate (Chlorhexidine 2% Cloth) 3 pack TOPICAL DAILY@0400 PRN PRN Reason: Extra cloth needed Stop: 02/18/18 03:59 Flumazenil (Romazecon Inj) 0.2 mg IV.PUSH Q1M PRN PRN Reason: OVERSEDATION Folic Acid (Folic Acid) 1 mg PO DAILY [facility] Stop: 02/18/18 08:59 Last Admin: 02/13/18 09:24 Dose: 1 mg Haloperidol Lactate (Haldol Inj) 1 mg IV.PUSH Q15M PRN PRN Reason: for severe agitation Lactulose (Lactulose Liq) 30 ml PO DAILY PRN PRN Reason: SEVERE CONSITIPATION Levothyroxine Sodium (Synthroid) 112 mcg PO DAILY@0600 [facility] Last Admin: 02/13/18 09:25 Dose: 112 mcg Levothyroxine Sodium (Synthroid) 25 mcg PO DAILY@0600 [facility] Last Admin: 02/13/18 09:54 Dose: 25 mcg Lorazepam (Ativan) 1 mg PO Q4H PRN PRN Reason: for CIWA 8-10 Lorazepam (Ativan) 2 mg PO Q2H PRN PRN Reason: for CIWA 11-14 Lorazepam (Ativan Inj) 2 mg IV.PUSH Q2H PRN PRN Reason: for CIWA 11-14 Lorazepam (Ativan Inj) 2 mg IV.PUSH Q1H PRN PRN Reason: for CIWA 15-20 Lorazepam (Ativan Inj) 2 mg IV.PUSH Q15M PRN PRN Reason: for CIWA > 20 Lorazepam (Ativan Inj) 1 mg IV.PUSH Q4H PRN PRN Reason: for CIWA 8-10 Losartan Potassium (Cozaar) 25 mg PO DAILY [facility] Last Admin: 02/13/18 09:26 Dose: 25 mg Metoprolol Tartrate (Lopressor) 25 mg PO BID [facility] Last Admin: 02/13/18 08:37 Dose: 25 mg Miscellaneous (Pill Splitter) 1 each OTHER UNSCH PRN PRN Reason: PILL SPLITTING Multivitamins/Minerals (Theragran-M) 1 tab PO DAILY [facility] Stop: 02/18/18 08:59 Last Admin: 02/13/18 09:26 Dose: 1 tab Nitroglycerin (Nitrostat Sl) 0.4 mg SL Q5M PRN PRN Reason: CHEST PAIN Last Admin: 02/12/18 20:43 Dose: 0.4 mg Senna/Docusate Sodium (Chantal-Colace) 1 tab PO BID [facility] Sennosides (Senokot) 17.2 mg PO Q12H PRN PRN Reason: Moderate Constipation Last Admin: 02/13/18 10:53 Dose: 17.2 mg Sodium Chloride (Ns Flush) 2 ml IV.FLUSH BID [facility] Last Admin: 02/13/18 09:25 Dose: 2 ml Sodium Chloride (Ns Flush) 2 ml IV.FLUSH PRN PRN PRN Reason: FLUSH AFTER USING IV ACCESS Last Admin: 02/13/18 09:25 Dose: 2 ml Temazepam (Restoril) 15 mg PO HS PRN PRN Reason: SLEEP Last Admin: 02/13/18 00:16 Dose: 15 mg Thiamine HCl (Vitamin B1) 100 mg PO DAILY [facility] Last Admin: 02/13/18 09:26 Dose: 100 mg Ticagrelor (Brilinta) 90 mg PO BID [facility] Last Admin: 02/13/18 08:37 Dose: 90 mg Physical Exam Vital signs: Vital Signs 02/12/18 18:09 02/12/18 19:35 02/12/18 20:01 Temperature 99.2 F Pulse Rate 89 90 85 Respiratory Rate 16 Blood Pressure 166/96 H 175/102 H 169/107 H Pulse Oximetry 96 97 02/12/18 20:25 02/12/18 20:30 02/12/18 20:43 Temperature 98.6 F Pulse Rate 77 94 H Respiratory Rate 18 18 Blood Pressure 146/99 H 185/85 H Pulse Oximetry 97 96 02/12/18 20:49 02/12/18 20:55 02/12/18 21:07 Temperature Pulse Rate 61 62 82 Respiratory Rate 18 18 18 Blood Pressure 87/51 L 89/55 L 131/79 Pulse Oximetry 02/12/18 21:52 02/12/18 22:45 02/12/18 23:26 Temperature Pulse Rate 61 88 Respiratory Rate 18 Blood Pressure 83/51 L 130/82 Pulse Oximetry 95 94 L 02/12/18 23:45 02/12/18 23:56 02/13/18 00:00 Temperature 97.7 F Pulse Rate 88 82 83 Respiratory Rate 19 17 20 Blood Pressure 138/82 118/79 Pulse Oximetry 97 96 95 02/13/18 00:05 02/13/18 00:10 02/13/18 00:15 Temperature Pulse Rate 86 84 84 Respiratory Rate 20 15 22 Blood Pressure 145/79 H 124/83 126/79 Pulse Oximetry 95 97 96 02/13/18 00:30 02/13/18 01:00 02/13/18 01:11 Temperature Pulse Rate 83 84 84 Respiratory Rate 120 H 14 14 Blood Pressure 126/83 125/83 125/83 Pulse Oximetry 97 98 98 02/13/18 01:30 02/13/18 02:00 02/13/18 02:30 Temperature Pulse Rate 81 79 76 Respiratory Rate 13 11 L 11 L Blood Pressure 140/79 127/87 113/82 Pulse Oximetry 99 100 99 02/13/18 03:00 02/13/18 03:30 02/13/18 04:00 Temperature 97.8 F Pulse Rate 74 78 72 Respiratory Rate 19 18 153 H Blood Pressure 123/86 132/91 H 126/85 Pulse Oximetry 100 99 99 02/13/18 04:31 02/13/18 05:00 02/13/18 05:30 Temperature Pulse Rate 77 75 73 Respiratory Rate 154 H 122 H 89 H Blood Pressure 160/88 H 135/91 H 120/85 Pulse Oximetry 96 96 95 02/13/18 06:00 02/13/18 06:30 02/13/18 07:00 Temperature Pulse Rate 72 69 75 Respiratory Rate 39 H 99 H 108 H Blood Pressure 128/86 133/91 H 146/98 H Pulse Oximetry 96 97 97 02/13/18 07:30 02/13/18 08:00 02/13/18 08:30 Temperature 98.3 F Pulse Rate 80 81 78 Respiratory Rate 0 L 4 L Blood Pressure 128/79 141/84 H 131/83 Pulse Oximetry 96 99 97 02/13/18 09:00 02/13/18 09:30 02/13/18 10:00 Temperature Pulse Rate 80 75 74 Respiratory Rate 8 L 8 L 34 H Blood Pressure 142/95 H 153/94 H 135/86 Pulse Oximetry 98 99 98 02/13/18 10:30 02/13/18 11:00 Temperature Pulse Rate 79 79 Respiratory Rate 149 H 22 Blood Pressure 146/88 H 135/81 Pulse Oximetry 98 98 Intake & Output 02/12/18 02/13/18 02/13/18 18:59 06:59 18:59 Intake Total 480 / 480 Output Total 1080 / 1080 Balance -600 / -600 Weight 94.3 kg 97 kg Intake: Oral 480 / 480 Output: Urine 1080 / 1080 Other: # Voids 2 # Bowel Movements 0 Weight On Admission 97 kg - Constitutional no acute distress - Routine HEENT Exam Head: Present: normocephalic Eye: Present: PERRL ENT: Present: mucous membranes moist - Routine Neck Exam Present: full ROM - Routine Respiratory Exam Present: CTA bilaterally - Routine Cardiovascular Exam Present: S1, S2. Absent: murmur, gallop, rubs - Routine Abdominal Exam Present: normoactive bowel sounds - Routine Extremities Exam Present: full ROM, pulses intact, normal capillary refill. Absent: cyanosis, clubbing, edema Comments: right groin site, D&I without signs of bleeding or hematoma. - Routine Skin Exam Present: intact - Routine Neurological Exam Present: oriented X3 - Detailed Neurological Exam: Coma Scale Eye Opening: Spontaneous Verbal Response: Oriented Motor Response: Obey commands [place] Coma Scale Total: 15 - Routine Psychiatric Exam Present: normal affect Results 02/13/18 09:30 02/13/18 09:30 Cardiac Enzymes 02/12/18 02/12/18 Range/Units 19:10 20:31 AST 19 (15-37) U/L Troponin I 0.30 H (0.02-0.05) ng/mL Coagulation 02/12/18 Range/Units 20:52 PT 10.3 (9.8-11.6) sec APTT 27.0 (23.4-31.7) sec Lipids 02/13/18 Range/Units 09:30 Triglycerides 104 (42-150) mg/dL Cholesterol 153 (120-200) mg/dL HDL Cholesterol 39.2 L (40.0-60.0) mg/dL Cholesterol/HDL Ratio 3.90 Ratio CBC 02/12/18 02/13/18 Range/Units 19:10 09:30 WBC 8.4 8.8 (4.0-11.0) th/mm3 RBC 4.14 L 3.55 L (4.50-5.90) mil/mm3 Hgb 11.7 L 11.0 L (13.0-17.0) gm/dL Hct 36.6 L 31.4 L (39.0-51.0) % Plt Count 564 H 455 H (150-450) th/mm3 Neut # (Auto) 6.5 7.4 (1.8-7.7) th/mm3 Lymph # (Auto) 1.2 0.7 L (1.0-4.8) th/mm3 [place] # (Auto) 0.6 0.7 (0.0-0.9) th/mm3 Eos # (Auto) 0.1 0.0 (0.0-0.4) th/mm3 Baso # (Auto) 0.0 0.0 (0.0-0.2) th/mm3 Comprehensive Metabolic Panel 02/12/18 02/12/18 02/13/18 Range/Units 19:10 20:40 09:30 Sodium 136 139 (136-145) meq/L Potassium 4.1 4.1 (3.5-5.1) meq/L Chloride 101 106 (98-107) meq/L Carbon Dioxide 28.6 24.4 (21.0-32.0) meq/L BUN 7 11 (7-18) mg/dL Creatinine 0.76 0.73 (0.60-1.30) mg/dL Calcium 9.6 9.6 9.1 (8.5-10.1) mg/dL AST 19 (15-37) U/L ALT 18 (12-78) U/L Alkaline Phosphatase 66 (45-117) U/L Total Protein 7.0 (6.4-8.2) g/dL Albumin 2.8 L (3.4-5.0) g/dL Intake and Output 02/12/18 02/13/18 02/13/18 22:59 06:59 14:59 Intake Total 480 / 480 Output Total 500 / 500 580 / 580 Balance -500 / -500 -100 / -100 Intake: Oral 480 / 480 Output: Urine 500 / 500 580 / 580 Other: # Voids 5 2 # Bowel Movements 0 Weight 94.3 kg 97 kg Weight On Admission 97 kg - Imaging and Cardiology Imaging: Impressions Abdomen X-Ray 02/12/18 19:18 CONCLUSION: No acute findings. There is residual contrast in large bowel. Chest X-Ray 02/12/18 20:27 CONCLUSION: No acute findings. Assessment and Plan - Assessment (1) ST elevation (STEMI) myocardial infarction Code(s): I21.3 - ST elevation (STEMI) myocardial infarction of unspecified site Status: Acute - Plan Patient had cardiac catheterization with stent placement to the mid and proximal LAD and angioplasty of the second diagonal artery. Right groin site without sings of bleeding or hematoma. We will continue aggressive risk factor modification including high dose atorvastatin. We will also continue Brilinta and baby aspirin for anticoagulation. Continue beta gene. We will continue to monitor the patient during his hospitalization. OK to transfer to [facility] with telemetry. The patient was seen and evaluated by Dr. Pierce who participated in care, management and decision making. - Attending Attestation Patient seen and examined. I reviewed and agree with the evaluation and plan as presented. Continue Brilinta and baby ASA for at least 1 month. 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 D/w Dr. Little.
--- NOTE | 2018-02-13 16:07 | P.PNGS ---
Subjective Patient reports: feels better Physical Exam Vital signs: Vital Signs 02/12/18 18:09 02/12/18 19:35 02/12/18 20:01 Temperature 99.2 F Pulse Rate 89 90 85 Respiratory Rate 16 Blood Pressure 166/96 H 175/102 H 169/107 H Pulse Oximetry 96 97 02/12/18 20:25 02/12/18 20:30 02/12/18 20:43 Temperature 98.6 F Pulse Rate 77 94 H Respiratory Rate 18 18 Blood Pressure 146/99 H 185/85 H Pulse Oximetry 97 96 02/12/18 20:49 02/12/18 20:55 02/12/18 21:07 Temperature Pulse Rate 61 62 82 Respiratory Rate 18 18 18 Blood Pressure 87/51 L 89/55 L 131/79 Pulse Oximetry 02/12/18 21:52 02/12/18 22:45 02/12/18 23:26 Temperature Pulse Rate 61 88 Respiratory Rate 18 Blood Pressure 83/51 L 130/82 Pulse Oximetry 95 94 L 02/12/18 23:45 02/12/18 23:56 02/13/18 00:00 Temperature 97.7 F Pulse Rate 88 82 83 Respiratory Rate 19 17 20 Blood Pressure 138/82 118/79 Pulse Oximetry 97 96 95 02/13/18 00:05 02/13/18 00:10 02/13/18 00:15 Temperature Pulse Rate 86 84 84 Respiratory Rate 20 15 22 Blood Pressure 145/79 H 124/83 126/79 Pulse Oximetry 95 97 96 02/13/18 00:30 02/13/18 01:00 02/13/18 01:11 Temperature Pulse Rate 83 84 84 Respiratory Rate 120 H 14 14 Blood Pressure 126/83 125/83 125/83 Pulse Oximetry 97 98 98 02/13/18 01:30 02/13/18 02:00 02/13/18 02:30 Temperature Pulse Rate 81 79 76 Respiratory Rate 13 11 L 11 L Blood Pressure 140/79 127/87 113/82 Pulse Oximetry 99 100 99 02/13/18 03:00 02/13/18 03:30 02/13/18 04:00 Temperature 97.8 F Pulse Rate 74 78 72 Respiratory Rate 19 18 153 H Blood Pressure 123/86 132/91 H 126/85 Pulse Oximetry 100 99 99 02/13/18 04:31 02/13/18 05:00 02/13/18 05:30 Temperature Pulse Rate 77 75 73 Respiratory Rate 154 H 122 H 89 H Blood Pressure 160/88 H 135/91 H 120/85 Pulse Oximetry 96 96 95 02/13/18 06:00 02/13/18 06:30 02/13/18 07:00 Temperature Pulse Rate 72 69 75 Respiratory Rate 39 H 99 H 108 H Blood Pressure 128/86 133/91 H 146/98 H Pulse Oximetry 96 97 97 02/13/18 07:30 02/13/18 08:00 02/13/18 08:30 Temperature 98.3 F Pulse Rate 80 81 78 Respiratory Rate 0 L 4 L Blood Pressure 128/79 141/84 H 131/83 Pulse Oximetry 96 99 97 02/13/18 09:00 02/13/18 09:30 02/13/18 10:00 Temperature Pulse Rate 80 75 74 Respiratory Rate 8 L 8 L 34 H Blood Pressure 142/95 H 153/94 H 135/86 Pulse Oximetry 98 99 98 02/13/18 10:30 02/13/18 11:00 02/13/18 11:30 Temperature Pulse Rate 79 79 79 Respiratory Rate 149 H 22 13 Blood Pressure 146/88 H 135/81 139/87 Pulse Oximetry 98 98 97 02/13/18 12:00 02/13/18 12:30 02/13/18 13:00 Temperature 98.4 F Pulse Rate 79 82 91 H Respiratory Rate 15 20 20 Blood Pressure 134/90 154/91 H 135/62 Pulse Oximetry 96 98 97 02/13/18 14:00 02/13/18 15:00 Temperature Pulse Rate 92 H 93 H Respiratory Rate 8 L 17 Blood Pressure 131/84 126/80 Pulse Oximetry 97 98 Intake & Output 02/12/18 02/13/18 02/13/18 18:59 06:59 18:59 Intake Total 480 / 480 Output Total 1080 / 1080 Balance -600 / -600 Weight 94.3 kg 97 kg Intake: Oral 480 / 480 Output: Urine 1080 / 1080 Other: # Voids 2 # Bowel Movements 0 Weight On Admission 97 kg - Constitutional no acute distress - Routine Abdominal Exam Present: soft, normoactive bowel sounds, distended. Absent: tenderness, rebound , guarding - Routine Skin Exam Present: intact. Absent: cyanosis, erythema, dry, pallor Comments: right shoulder and right axillary incisions clean, healing without infection or complication Results - Labs 02/13/18 09:30 02/13/18 09:30 Laboratory Results - last 24 hr 02/12/18 02/12/18 02/12/18 19:10 19:10 19:28 CBC w Diff Auto diff final WBC 8.4 RBC 4.14 L Hgb 11.7 L Hct 36.6 L MCV 88.4 MCH 28.4 MCHC 32.0 RDW 13.6 Plt Count 564 H MPV 7.6 Neut % (Auto) 77.4 H Lymph % (Auto) 13.7 [place] % (Auto) 7.6 Eos % (Auto) 0.9 Baso % (Auto) 0.4 Neut # (Auto) 6.5 Lymph # (Auto) 1.2 [place] # (Auto) 0.6 Eos # (Auto) 0.1 Baso # (Auto) 0.0 WBC Differential . Differential Comment . PT INR APTT Sodium 136 Potassium 4.1 Chloride 101 Carbon Dioxide 28.6 Anion Gap 6 BUN 7 Creatinine 0.76 Estimated GFR Greater than 89 POC Glucose Random Glucose 125 H Calcium 9.6 Magnesium Total Bilirubin 0.3 AST 19 ALT 18 Alkaline Phosphatase 66 Total Creatine Kinase CK-MB (CK-2) CK-MB (CK-2) % Troponin I Total Protein 7.0 Albumin 2.8 L Triglycerides Cholesterol LDL Cholesterol, Calc HDL Cholesterol Cholesterol/HDL Ratio Lipase 131 Urine Color Yellow Urine Clarity Clear Urine pH 5.5 Ur Specific [place] Greater/equal 1.030 Urine Protein Negative Urine Glucose (UA) Negative Urine Ketones Negative Urine Occult Blood Negative Urine Nitrate Negative Urine Bilirubin Negative Urine Urobilinogen 0.2 Ur Leukocyte Esterase Negative Urine RBC 0-3 Urine WBC 0-5 Ur Squamous Epith Cells 0-5 Urine Mucus Many H Micro UA Comment Culture not ind Ur Microscopic Review Microscopic reviewed Urine Culture Comments Culture not ind Nasal Screen MRSA (PCR) 02/12/18 02/12/18 02/12/18 20:31 20:40 20:52 CBC w Diff WBC RBC Hgb Hct MCV MCH MCHC RDW Plt Count MPV Neut % (Auto) Lymph % (Auto) [place] % (Auto) Eos % (Auto) Baso % (Auto) Neut # (Auto) Lymph # (Auto) [place] # (Auto) Eos # (Auto) Baso # (Auto) WBC Differential Differential Comment PT 10.3 INR 1.0 APTT 27.0 Sodium Potassium Chloride Carbon Dioxide Anion Gap BUN Creatinine Estimated GFR POC Glucose Random Glucose Calcium 9.6 Magnesium 2.4 Total Bilirubin AST ALT Alkaline Phosphatase Total Creatine Kinase CK-MB (CK-2) CK-MB (CK-2) % Troponin I 0.30 H Total Protein Albumin Triglycerides Cholesterol LDL Cholesterol, Calc HDL Cholesterol Cholesterol/HDL Ratio Lipase Urine Color Urine Clarity Urine pH Ur Specific [place] Urine Protein Urine Glucose (UA) Urine Ketones Urine Occult Blood Urine Nitrate Urine Bilirubin Urine Urobilinogen Ur Leukocyte Esterase Urine RBC Urine WBC Ur Squamous Epith Cells Urine Mucus Micro UA Comment Ur Microscopic Review Urine Culture Comments Nasal Screen MRSA (PCR) 02/12/18 02/13/18 02/13/18 23:40 08:43 09:30 CBC w Diff WBC 8.8 RBC 3.55 L Hgb 11.0 L Hct 31.4 L MCV 88.4 MCH 31.1 MCHC 35.1 RDW 14.2 Plt Count 455 H MPV 7.2 Neut % (Auto) 84.2 H Lymph % (Auto) 7.8 L [place] % (Auto) 7.5 Eos % (Auto) 0.3 Baso % (Auto) 0.2 Neut # (Auto) 7.4 Lymph # (Auto) 0.7 L [place] # (Auto) 0.7 Eos # (Auto) 0.0 Baso # (Auto) 0.0 WBC Differential . Differential Comment Auto diff final PT INR APTT Sodium Potassium Chloride Carbon Dioxide Anion Gap BUN Creatinine Estimated GFR POC Glucose 121 H Random Glucose Calcium Magnesium Total Bilirubin AST ALT Alkaline Phosphatase Total Creatine Kinase CK-MB (CK-2) CK-MB (CK-2) % Troponin I Total Protein Albumin Triglycerides Cholesterol LDL Cholesterol, Calc HDL Cholesterol Cholesterol/HDL Ratio Lipase Urine Color Urine Clarity Urine pH Ur Specific [place] Urine Protein Urine Glucose (UA) Urine Ketones Urine Occult Blood Urine Nitrate Urine Bilirubin Urine Urobilinogen Ur Leukocyte Esterase Urine RBC Urine WBC Ur Squamous Epith Cells Urine Mucus Micro UA Comment Ur Microscopic Review Urine Culture Comments Nasal Screen MRSA (PCR) Not detected 02/13/18 02/13/18 09:30 11:10 CBC w Diff WBC RBC Hgb Hct MCV MCH MCHC RDW Plt Count MPV Neut % (Auto) Lymph % (Auto) [place] % (Auto) Eos % (Auto) Baso % (Auto) Neut # (Auto) Lymph # (Auto) [place] # (Auto) Eos # (Auto) Baso # (Auto) WBC Differential Differential Comment PT INR APTT Sodium 139 Potassium 4.1 Chloride 106 Carbon Dioxide 24.4 Anion Gap 9 BUN 11 Creatinine 0.73 Estimated GFR Greater than 89 POC Glucose 164 H Random Glucose 170 H Calcium 9.1 Magnesium Total Bilirubin AST ALT Alkaline Phosphatase Total Creatine Kinase 1629 H CK-MB (CK-2) 172.3 H CK-MB (CK-2) % 10.6 H* Troponin I Total Protein Albumin Triglycerides 104 Cholesterol 153 LDL Cholesterol, Calc 93 HDL Cholesterol 39.2 L Cholesterol/HDL Ratio 3.90 Lipase Urine Color Urine Clarity Urine pH Ur Specific [place] Urine Protein Urine Glucose (UA) Urine Ketones Urine Occult Blood Urine Nitrate Urine Bilirubin Urine Urobilinogen Ur Leukocyte Esterase Urine RBC Urine WBC Ur Squamous Epith Cells Urine Mucus Micro UA Comment Ur Microscopic Review Urine Culture Comments Nasal Screen MRSA (PCR) - Imaging Imaging: ITS Impressions Abdomen X-Ray 02/12/18 19:18 CONCLUSION: No acute findings. There is residual contrast in large bowel. Chest X-Ray 02/12/18 20:27 CONCLUSION: No acute findings. Assessment and Plan - Assessment (1) Melanoma Code(s): C43.9 - Malignant melanoma of skin, unspecified Status: Acute - Plan 62yo male with melanoma right shoulder, s/p wide excision 1 and lymph node biopsy. - no issues with melanoma, healing well, fu in 2 weeks for suture removal - GI symptoms, encouraged liquid diet, needs EGD and biopsy, d/w Dr. Roberson, may be able to get biopsy in 30 days - d/w patient
[2018-02-13] MEDS ORDERED: Aluminum/Magnesium/Simethacone Susp 30 ML UDC PO PRN (16:53)
[2018-02-13 17:22] LABS: Hemoglobin A1c 6.3 % (4.3-6.0)
[2018-02-13] MEDS: Senna/Docusate Sodium 8.6/50 MG Tablet PO SCH (20:19)
[2018-02-13] MEDS: Famotidine 20 MG Tablet PO SCH (20:19)
--- NOTE | 2018-02-13 21:43 | ECG ---
Date Performed: 02/13/2018 Time Performed: 07:05:17 PTAGE: 62 years EKG: Sinus rhythm LOW QRS VOLTAGE IN PRECORDIAL LEADS POSSIBLE RIGHT VENTRICULAR CONDUCTION DELAY ANTERIOR MYOCARDIAL INFARCTION , PROBABLY RECENT ACUTE ID PREVIOUS TRACING : 02/12/2018 20.47 Compared to previous tracing, there is evolution of a nterior and inferior STEMI DOCTOR: Kyrie Dunham Interpretating Date/Time 02/13/2018 21:42:07
--- NOTE | 2018-02-13 22:24 | ECG ---
Date Performed: 02/12/2018 Time Performed: 20:47:29 PTAGE: 62 years EKG: Sinus rhythm LOW QRS VOLTAGE IN PRECORDIAL LEADS POSSIBLE RIGHT VENTRICULAR CONDUCTION DELAY MARKED ST ELEVATION, CONSIDER ANTERIOR INJURY ACUTE WI NO PREVIOUS TRACING DOCTOR: Kyrie Dunham Interpretating Date/Time 02/13/2018 22:22:11
[2018-02-14] MEDS: Chlorhexidine Gluconate 2% 1 Pack (2 Cloths) TOPICAL SCH (03:00)
[2018-02-14] MEDS: Levothyroxine 112 MCG Tablet PO SCH (05:32)
[2018-02-14] MEDS: Multivitamin/Minerals Therapeutic Tablet PO SCH (08:47)
[2018-02-14] MEDS: Senna/Docusate Sodium 8.6/50 MG Tablet PO SCH ×2 (08:47→20:48)
[2018-02-14] MEDS: Folic Acid 1 MG Tablet PO SCH (08:48)
[2018-02-14] MEDS: Famotidine 20 MG Tablet PO SCH ×2 (08:48→20:48)
[2018-02-14] MEDS: Metoprolol Tartrate 25 MG Tablet PO SCH ×2 (08:48→20:48)
--- NOTE | 2018-02-14 10:23 | P.PN ---
Subjective Interval history: telemetry- in SR up and ambualting tolerated po well Physical Exam Vital signs: Vital Signs 02/13/18 10:30 02/13/18 11:00 02/13/18 11:30 Temperature Pulse Rate 79 79 79 Respiratory Rate 149 H 22 13 Blood Pressure 146/88 H 135/81 139/87 Pulse Oximetry 98 98 97 02/13/18 12:00 02/13/18 12:30 02/13/18 13:00 Temperature 98.4 F Pulse Rate 79 82 91 H Respiratory Rate 15 20 20 Blood Pressure 134/90 154/91 H 135/62 Pulse Oximetry 96 98 97 02/13/18 14:00 02/13/18 15:00 02/13/18 16:00 Temperature 98.8 F Pulse Rate 92 H 93 H 83 Respiratory Rate 8 L 17 12 Blood Pressure 131/84 126/80 131/79 Pulse Oximetry 97 98 97 02/13/18 17:00 02/13/18 18:00 02/13/18 19:00 Temperature Pulse Rate 95 H 101 H 102 H Respiratory Rate 128 H 45 H 124 H Blood Pressure Pulse Oximetry 98 98 93 L 02/13/18 20:00 02/13/18 21:00 02/13/18 21:41 Temperature 99.1 F Pulse Rate 93 H 85 85 Respiratory Rate 14 16 Blood Pressure 123/76 125/81 Pulse Oximetry 97 99 02/13/18 22:00 02/13/18 23:00 02/14/18 00:00 Temperature 98.9 F Pulse Rate 79 76 89 Respiratory Rate 18 Blood Pressure 110/72 Pulse Oximetry 98 02/14/18 01:00 02/14/18 02:00 02/14/18 03:00 Temperature Pulse Rate 89 83 86 Respiratory Rate Blood Pressure Pulse Oximetry 02/14/18 04:00 02/14/18 05:00 02/14/18 06:00 Temperature 98.8 F Pulse Rate 88 88 82 Respiratory Rate 17 Blood Pressure 113/66 Pulse Oximetry 96 02/14/18 07:00 02/14/18 08:00 02/14/18 08:34 Temperature 98.3 F Pulse Rate 87 106 H 102 H Respiratory Rate 18 Blood Pressure 147/95 H Pulse Oximetry 98 02/14/18 09:00 Temperature Pulse Rate 102 H Respiratory Rate Blood Pressure Pulse Oximetry Intake & Output 12/02/1902/14/18 02/14/18 18:59 06:59 18:59 Intake Total 500 / 500 Output Total 800 / 800 Balance -300 / -300 Weight 93.1 kg Intake: Oral 500 / 500 Output: Urine 800 / 800 Other: Date of Last Bowel Movement 02/13/18 02/13/18 02/14/18 # Bowel Movements 1 Narrative: GENERAL: Well-developed, well-nourished in no distress SKIN: Warm and dry. HEAD: Atraumatic. Normocephalic. EYES: Pupils equal and round. No scleral icterus. No injection or drainage. NECK: Trachea midline. No JVD. CARDIOVASCULAR: Regular rate and rhythm. RESPIRATORY: No accessory muscle use. Clear to auscultation. Breath sounds equal bilaterally. GASTROINTESTINAL: Abdomen soft, non-tender, distended but soft MUSCULOSKELETAL: Extremities without clubbing, cyanosis, or edema. No obvious deformities. NEUROLOGICAL: Awake and alert. No obvious cranial nerve deficits. Motor grossly within normal limits. Five out of 5 muscle strength in the arms and legs. Normal speech. PSYCHIATRIC: Appropriate mood and affect; insight and judgment normal. right upper back- just around shoulder - sutures in plkace, incision no erythema, dry l Results - Labs CBC & Chem 7: 02/16/18 05:45 02/13/18 09:30 Laboratory Results - last 24 hr 02/13/18 02/13/18 02/13/18 09:30 09:30 11:10 Sodium 139 Potassium 4.1 Chloride 106 Carbon Dioxide 24.4 Anion Gap 9 BUN 11 Creatinine 0.73 Estimated GFR Greater than 89 POC Glucose 164 H Random Glucose 170 H Hemoglobin A1c 6.3 H Calcium 9.1 Total Creatine Kinase 1629 H CK-MB (CK-2) 172.3 H CK-MB (CK-2) % 10.6 H* Triglycerides 104 Cholesterol 153 LDL Cholesterol, Calc 93 HDL Cholesterol 39.2 L Cholesterol/HDL Ratio 3.90 02/13/18 02/13/18 02/14/18 16:43 21:29 08:44 Sodium Potassium Chloride Carbon Dioxide Anion Gap BUN Creatinine Estimated GFR POC Glucose 165 H 150 H 149 H Random Glucose Hemoglobin A1c Calcium Total Creatine Kinase CK-MB (CK-2) CK-MB (CK-2) % Triglycerides Cholesterol LDL Cholesterol, Calc HDL Cholesterol Cholesterol/HDL Ratio Assessment and Plan - Plan This is a 62-year-old male with recently diagnosed melanoma in his back status post excision several days ago, GERD and kidney stones. He presents to the emergency department complaining of sharp constant abdominal discomfort associated with distention and for the past several days. Recent PET scan concerning for metastatic disease. Outpatient abdominal CT showed abnormal appearance of the distal thoracic esophagus and GE junction which is hypermetabolic on recent PET and suspicious for a primary malignancy. Patient scheduled for EGD next week by Dr. Larkin. In the ED, he developed sharp pain across his chest associated with diaphoresis and pallor. Stat EKG showed ST elevation in the inferior leads and lateral leads. Troponin 0.3. Developed Vfib arrest Status post defibrillation and CPR. Underwent emergent cardiac catheterization with stenting of the LAD and second diagonal by Dr. Pierce STEMI status post stent to proximal LAD, + angioplasty of 2nd daigonal - Currently pain-free. Continue aspirin, Brilinta, Lopressor and nitrate. Risk factor modification. V. fib arrest status post defibrillation and CPR, secondary to above. EF 45% Abdominal pain and distention secondary to constipation- now with melena- Acute anemia R/O GIB- melanotic stools ? Mass abdominal on CT per admisision report done as OP CT- as OP was supopose to ff with Dr Larkin - Hemoglobin drop to 9,4 from 11-to- definitely black,melanotic stools - will go ahead and call Gi- known to Dr. Larkin-eval for EGD - Abdominal x-ray shows no obstruction. - had BM- melanotic stools overnight, abdomen- less distended t softer, + bowel sounds - start PPI - repeat hgb at 6 pm and in am - transfuse if hemoglobin less than 9 S/P wide excision melanoma - OP ff up with Dr. Marquez DVT prophylaxis with SCD and early ambulation d/w Dr. Pierce- cannot stop Brillinta or ASA- GI will proceed with EGDin am
[2018-02-14 11:16] LABS: Hematocrit 26.3 % (39.0-51.0); Hemoglobin 9.4 gm/dL (13.0-17.0); Mean Corpuscular HGB Conc 35.9 % (32.0-36.0); Mean Corpuscular Hemoglobin 31.4 pg (27.0-34.0); Mean Corpuscular Volume 87.5 fL (80.0-100.0); Mean Platelet Volume 6.8 fL (7.0-11.0); Platelet Count 441 th/mm3 (150-450); Red Blood Count 3.01 mil/mm3 (4.50-5.90); Red Cell Distribution Width 14.2 % (11.6-17.2); White Blood Count 7.7 th/mm3 (4.0-11.0)
--- NOTE | 2018-02-14 13:49 | P.CONGI ---
History of Present Illness Chief complaint: STEMI History of Present Illness: This is a 62-year-old male with recently diagnosed melanoma in his back status post excision several days ago, GERD and kidney stones who presented to the ED with complaints of sharp constant abdominal discomfort associated with distention for the past several days. He was found to have STEMI, V. fib arrest status post defibrillation and CPR, he is now s/p heart cath and stents, anticoagulated with ASA and Brilinta. According to EMR "Recent PET scan concerning for metastatic disease. Outpatient abdominal CT showed abnormal appearance of the distal thoracic esophagus and GE junction which is hypermetabolic on recent PET and suspicious for a primary malignancy". Patient was seen in our office and was scheduled for EGD/colonoscopy next week with Dr. Roberson. GI consulted for melanotic stools and drop in hgb. He was also found to have heme (+) stools. Pt states a month ago, he noticed dark stools intermittently due to taking heavy doses of Ibuprofen but he discontinued this and hasn't had dark stools until yesterday. Abdominal x-ray done with no obstruction. Review of Systems All other systems reviewed negative except as stated in HPI PMFSH - History History Provided By: Patient - Medical History Medical History: Medical History (Last Reviewed 02/13/18 @ 11:22 by Kulwant Mays MD) Melanoma History of high blood pressure Hx of thyroid disease - Surgical History Surgical History: Surgical History (Last Reviewed 02/13/18 @ 11:22 by Kulwant Mays MD) H/O thyroidectomy - Family History Family History: Family History (Last Reviewed 02/13/18 @ 11:22 by Kulwant Mays MD) Other Skin cancer - Tobacco History Second Hand Smoke Exposure: No Tobacco Use In Past 30 Days: No Smoking Status: Former smoker Tobacco Type: Cigarettes - Alcohol History How Often Do You Have a Drink Containing Alcohol: 4 or more times a week - Substance Use History Substance History: No History of Abuse - Substance Use Type Alcohol Status: Active Route Used: By Mouth Frequency: Wine daily - Travel History Recent Travel in the [place] Within the Last 8 Weeks: Yes Recent Travel Out of the Country Within the Last 8 Weeks: No - Immunization History Tetanus Immunization: >5 Years Hx Influenza Vaccine This Season: No Medications and Allergies Active Medications: Active Medications Al Hydrox/Mg Hydrox/Simethicone (Mag-Al Plus Susp Liq) 30 ml PO Q6H PRN PRN Reason: DYSPEPSIA OR HEARTBURN Al Hydroxide/Mg Hydroxide (Milk Of Magnesia Liq) 30 ml PO Q12H PRN PRN Reason: Mild Constipation Last Admin: 02/13/18 10:53 Dose: 30 ml Aspirin (Aspirin Chew) 81 mg PO DAILY [facility] Last Admin: 02/14/18 08:48 Dose: 81 mg Atorvastatin Calcium (Lipitor) 80 mg PO HS [facility] Last Admin: 02/13/18 20:22 Dose: 80 mg Bisacodyl (Dulcolax Supp) 10 mg RECTAL DAILY PRN PRN Reason: SEVERE CONSITIPATION Calcium Carbonate (Tums Chew) 500 mg CHEW Q6H PRN PRN Reason: DYSPEPSIA OR HEARTBURN Last Admin: 02/13/18 16:59 Dose: 500 mg Chlorhexidine Gluconate (Chlorhexidine 2% Cloth) 3 pack TOPICAL DAILY@0400 [facility] Stop: 02/18/18 03:59 Last Admin: 02/14/18 03:00 Dose: Not Given Chlorhexidine Gluconate (Chlorhexidine 2% Cloth) 3 pack TOPICAL DAILY@0400 PRN PRN Reason: Extra cloth needed Stop: 02/18/18 03:59 Famotidine (Pepcid) 20 mg PO BID [facility] Last Admin: 02/14/18 08:48 Dose: 20 mg Flumazenil (Romazecon Inj) 0.2 mg IV.PUSH Q1M PRN PRN Reason: OVERSEDATION Folic Acid (Folic Acid) 1 mg PO DAILY [facility] Stop: 02/18/18 08:59 Last Admin: 02/14/18 08:48 Dose: 1 mg Haloperidol Lactate (Haldol Inj) 1 mg IV.PUSH Q15M PRN PRN Reason: for severe agitation Lactulose (Lactulose Liq) 30 ml PO DAILY PRN PRN Reason: SEVERE CONSITIPATION Levothyroxine Sodium (Synthroid) 112 mcg PO DAILY@0600 [facility] Last Admin: 02/14/18 05:32 Dose: 112 mcg Levothyroxine Sodium (Synthroid) 25 mcg PO DAILY@0600 [facility] Last Admin: 02/14/18 05:33 Dose: 25 mcg Lorazepam (Ativan) 1 mg PO Q4H PRN PRN Reason: for CIWA 8-10 Lorazepam (Ativan) 2 mg PO Q2H PRN PRN Reason: for CIWA 11-14 Lorazepam (Ativan Inj) 2 mg IV.PUSH Q2H PRN PRN Reason: for CIWA 11-14 Lorazepam (Ativan Inj) 2 mg IV.PUSH Q1H PRN PRN Reason: for CIWA 15-20 Lorazepam (Ativan Inj) 2 mg IV.PUSH Q15M PRN PRN Reason: for CIWA > 20 Lorazepam (Ativan Inj) 1 mg IV.PUSH Q4H PRN PRN Reason: for CIWA 8-10 Losartan Potassium (Cozaar) 25 mg PO DAILY [facility] Last Admin: 02/14/18 08:48 Dose: 25 mg Metoprolol Tartrate (Lopressor) 25 mg PO BID [facility] Last Admin: 02/14/18 08:48 Dose: 25 mg Miscellaneous (Pill Splitter) 1 each OTHER UNSCH PRN PRN Reason: PILL SPLITTING Multivitamins/Minerals (Theragran-M) 1 tab PO DAILY [facility] Stop: 02/18/18 08:59 Last Admin: 02/14/18 08:47 Dose: 1 tab Nitroglycerin (Nitrostat Sl) 0.4 mg SL Q5M PRN PRN Reason: CHEST PAIN Last Admin: 02/12/18 20:43 Dose: 0.4 mg Senna/Docusate Sodium (Chantal-Colace) 1 tab PO BID [facility] Last Admin: 02/14/18 08:47 Dose: 1 tab Sennosides (Senokot) 17.2 mg PO Q12H PRN PRN Reason: Moderate Constipation Last Admin: 02/13/18 10:53 Dose: 17.2 mg Sodium Chloride (Ns Flush) 2 ml IV.FLUSH BID [facility] Last Admin: 02/14/18 08:48 Dose: 2 ml Sodium Chloride (Ns Flush) 2 ml IV.FLUSH PRN PRN PRN Reason: FLUSH AFTER USING IV ACCESS Last Admin: 02/13/18 09:25 Dose: 2 ml Temazepam (Restoril) 15 mg PO HS PRN PRN Reason: SLEEP Last Admin: 02/13/18 20:19 Dose: 15 mg Thiamine HCl (Vitamin B1) 100 mg PO DAILY [facility] Last Admin: 02/14/18 08:48 Dose: 100 mg Ticagrelor (Brilinta) 90 mg PO BID [facility] Last Admin: 02/14/18 08:48 Dose: 90 mg Allergies Allergy/AdvReac Type Severity Reaction Status Date / Time azithromycin AdvReac Migraine Verified 02/12/18 18:08 [From [employer]] Home Medications Medication Instructions Recorded Confirmed Type levothyroxine [Synthroid] 137 mcg PO DAILY 01/03/18 02/12/18 History losartan 0 mg PO DAILY 01/03/18 02/12/18 History metoprolol tartrate 0 mg PO DAILY 01/03/18 02/12/18 History Exam Vital signs: Vital Signs 02/13/18 14:00 02/13/18 15:00 02/13/18 16:00 Temperature 98.8 F Pulse Rate 92 H 93 H 83 Respiratory Rate 8 L 17 12 Blood Pressure 131/84 126/80 131/79 Pulse Oximetry 97 98 97 02/13/18 17:00 02/13/18 18:00 02/13/18 19:00 Temperature Pulse Rate 95 H 101 H 102 H Respiratory Rate 128 H 45 H 124 H Blood Pressure Pulse Oximetry 98 98 93 L 02/13/18 20:00 02/13/18 21:00 02/13/18 21:41 Temperature 99.1 F Pulse Rate 93 H 85 85 Respiratory Rate 14 16 Blood Pressure 123/76 125/81 Pulse Oximetry 97 99 02/13/18 22:00 02/13/18 23:00 02/14/18 00:00 Temperature 98.9 F Pulse Rate 79 76 89 Respiratory Rate 18 Blood Pressure 110/72 Pulse Oximetry 98 02/14/18 01:00 02/14/18 02:00 02/14/18 03:00 Temperature Pulse Rate 89 83 86 Respiratory Rate Blood Pressure Pulse Oximetry 02/14/18 04:00 02/14/18 05:00 02/14/18 06:00 Temperature 98.8 F Pulse Rate 88 88 82 Respiratory Rate 17 Blood Pressure 113/66 Pulse Oximetry 96 02/14/18 07:00 02/14/18 08:00 02/14/18 08:34 Temperature 98.3 F Pulse Rate 87 106 H 102 H Respiratory Rate 18 Blood Pressure 147/95 H Pulse Oximetry 98 02/14/18 09:00 02/14/18 10:00 02/14/18 11:00 Temperature Pulse Rate 102 H 86 102 H Respiratory Rate Blood Pressure Pulse Oximetry 02/14/18 11:24 02/14/18 12:00 Temperature 98.7 F Pulse Rate 97 H 90 Respiratory Rate 18 Blood Pressure 149/92 H Pulse Oximetry 98 Intake & Output 02/13/18 02/14/18 02/14/18 18:59 06:59 18:59 Intake Total 500 / 500 Output Total 800 / 800 Balance -300 / -300 Weight 93.1 kg Intake: Oral 500 / 500 Output: Urine 800 / 800 Other: Date of Last Bowel Movement 02/13/18 02/13/18 02/14/18 # Bowel Movements 1 - Constitutional no acute distress - Routine HEENT Exam Head: Present: normocephalic - Routine Respiratory Exam Present: CTA bilaterally - Routine Cardiovascular Exam Present: RRR - Routine Abdominal Exam Present: normoactive bowel sounds, distended, firm. Absent: tenderness, rebound , guarding - Routine Skin Exam Present: intact, dry - Routine Neurological Exam Present: alert, oriented X3 Results - Labs CBC & Chem 7: 02/14/18 11:08 02/13/18 09:30 Labs: Laboratory Results - last 24 hr 02/13/18 02/13/18 02/13/18 09:30 16:43 21:29 WBC RBC Hgb Hct MCV MCH MCHC RDW Plt Count MPV POC Glucose 165 H 150 H Hemoglobin A1c 6.3 H 02/14/18 02/14/18 02/14/18 08:44 11:08 11:32 WBC 7.7 RBC 3.01 L Hgb 9.4 L Hct 26.3 L MCV 87.5 MCH 31.4 MCHC 35.9 RDW 14.2 Plt Count 441 MPV 6.8 L POC Glucose 149 H 125 H Hemoglobin A1c Assessment and Plan - Plan - Melena, heme (+) stools, anemia, ?metastatic disease. Recently diagnosed melanoma in his back status post excision several days ago, recently started on ASA and Brilinta presented to the ED with complaints of sharp constant abdominal discomfort associated with distention for the past several days. According to EMR "Recent PET scan concerning for metastatic disease. Outpatient abdominal CT showed abnormal appearance of the distal thoracic esophagus and GE junction which is hypermetabolic on recent PET and suspicious for a primary malignancy". Patient was seen in our office and was scheduled for EGD/colonoscopy next week with Dr. Roberson. GI consulted for melanotic stools and drop in hgb. He was also found to have heme (+) stools. Pt states a month ago, he noticed dark stools intermittently due to taking heavy doses of Ibuprofen but he discontinued this and hasn't had dark stools until yesterday. Abdominal x-ray done with no obstruction. - Recently diagnosed melanoma in his back status post excision several days ago by Dr. Meehan - ?metastatic disease. According to EMR "Recent PET scan concerning for metastatic disease. Outpatient abdominal CT showed abnormal appearance of the distal thoracic esophagus and GE junction which is hypermetabolic on recent PET and suspicious for a primary malignancy". - STEMI, V. fib arrest status post defibrillation and CPR, he is now s/p heart cath and stents, anticoagulated with ASA and Brilinta. Plan: - Clear liquids - EGD tomorrow, will be done while on blood thinner - Case discussed with Dr. Mays and Dr. Pierce, Pt is cleared to have EGD tomorrow while on blood thinners - PPI drip - Monitor hh - Transfuse as needed - Supportive care - Pt seen and examined by Dr. Sinha and myself and this note is written on his behalf.
--- NOTE | 2018-02-14 14:21 | P.PNCA ---
Subjective Interval history: No CP or SOB, feels better, c/o GI bleed Medications and Allergies Active Medications: Active Medications Al Hydrox/Mg Hydrox/Simethicone (Mag-Al Plus Susp Liq) 30 ml PO Q6H PRN PRN Reason: DYSPEPSIA OR HEARTBURN Al Hydroxide/Mg Hydroxide (Milk Of Magnesia Liq) 30 ml PO Q12H PRN PRN Reason: Mild Constipation Last Admin: 02/13/18 10:53 Dose: 30 ml Aspirin (Aspirin Chew) 81 mg PO DAILY [facility] Last Admin: 02/14/18 08:48 Dose: 81 mg Atorvastatin Calcium (Lipitor) 80 mg PO HS [facility] Last Admin: 02/13/18 20:22 Dose: 80 mg Bisacodyl (Dulcolax Supp) 10 mg RECTAL DAILY PRN PRN Reason: SEVERE CONSITIPATION Calcium Carbonate (Tums Chew) 500 mg CHEW Q6H PRN PRN Reason: DYSPEPSIA OR HEARTBURN Last Admin: 02/13/18 16:59 Dose: 500 mg Chlorhexidine Gluconate (Chlorhexidine 2% Cloth) 3 pack TOPICAL DAILY@0400 [facility] Stop: 02/18/18 03:59 Last Admin: 02/14/18 03:00 Dose: Not Given Chlorhexidine Gluconate (Chlorhexidine 2% Cloth) 3 pack TOPICAL DAILY@0400 PRN PRN Reason: Extra cloth needed Stop: 02/18/18 03:59 Famotidine (Pepcid) 20 mg PO BID [facility] Last Admin: 02/14/18 08:48 Dose: 20 mg Flumazenil (Romazecon Inj) 0.2 mg IV.PUSH Q1M PRN PRN Reason: OVERSEDATION Folic Acid (Folic Acid) 1 mg PO DAILY [facility] Stop: 02/18/18 08:59 Last Admin: 02/14/18 08:48 Dose: 1 mg Haloperidol Lactate (Haldol Inj) 1 mg IV.PUSH Q15M PRN PRN Reason: for severe agitation Pantoprazole Sodium 80 mg/ (Sodium Chloride) 100 mls @ 10 mls/hr IV.CONT CONT [facility] Lactulose (Lactulose Liq) 30 ml PO DAILY PRN PRN Reason: SEVERE CONSITIPATION Levothyroxine Sodium (Synthroid) 112 mcg PO DAILY@0600 [facility] Last Admin: 02/14/18 05:32 Dose: 112 mcg Levothyroxine Sodium (Synthroid) 25 mcg PO DAILY@0600 [facility] Last Admin: 02/14/18 05:33 Dose: 25 mcg Lorazepam (Ativan) 1 mg PO Q4H PRN PRN Reason: for CIWA 8-10 Lorazepam (Ativan) 2 mg PO Q2H PRN PRN Reason: for CIWA 11-14 Lorazepam (Ativan Inj) 2 mg IV.PUSH Q2H PRN PRN Reason: for CIWA 11-14 Lorazepam (Ativan Inj) 2 mg IV.PUSH Q1H PRN PRN Reason: for CIWA 15-20 Lorazepam (Ativan Inj) 2 mg IV.PUSH Q15M PRN PRN Reason: for CIWA > 20 Lorazepam (Ativan Inj) 1 mg IV.PUSH Q4H PRN PRN Reason: for CIWA 8-10 Losartan Potassium (Cozaar) 25 mg PO DAILY [facility] Last Admin: 02/14/18 08:48 Dose: 25 mg Metoprolol Tartrate (Lopressor) 25 mg PO BID [facility] Last Admin: 02/14/18 08:48 Dose: 25 mg Miscellaneous (Pill Splitter) 1 each OTHER UNSCH PRN PRN Reason: PILL SPLITTING Multivitamins/Minerals (Theragran-M) 1 tab PO DAILY [facility] Stop: 02/18/18 08:59 Last Admin: 02/14/18 08:47 Dose: 1 tab Nitroglycerin (Nitrostat Sl) 0.4 mg SL Q5M PRN PRN Reason: CHEST PAIN Last Admin: 02/12/18 20:43 Dose: 0.4 mg Senna/Docusate Sodium (Chantal-Colace) 1 tab PO BID [facility] Last Admin: 02/14/18 08:47 Dose: 1 tab Sennosides (Senokot) 17.2 mg PO Q12H PRN PRN Reason: Moderate Constipation Last Admin: 02/13/18 10:53 Dose: 17.2 mg Sodium Chloride (Ns Flush) 2 ml IV.FLUSH BID [facility] Last Admin: 02/14/18 08:48 Dose: 2 ml Sodium Chloride (Ns Flush) 2 ml IV.FLUSH PRN PRN PRN Reason: FLUSH AFTER USING IV ACCESS Last Admin: 02/13/18 09:25 Dose: 2 ml Temazepam (Restoril) 15 mg PO HS PRN PRN Reason: SLEEP Last Admin: 02/13/18 20:19 Dose: 15 mg Thiamine HCl (Vitamin B1) 100 mg PO DAILY [facility] Last Admin: 02/14/18 08:48 Dose: 100 mg Ticagrelor (Brilinta) 90 mg PO BID [facility] Last Admin: 02/14/18 08:48 Dose: 90 mg Allergies Allergy/AdvReac Type Severity Reaction Status Date / Time azithromycin AdvReac Migraine Verified 02/12/18 18:08 [From [employer]] Home Medications Medication Instructions Recorded Confirmed Type levothyroxine [Synthroid] 137 mcg PO DAILY 01/03/18 02/12/18 History losartan 0 mg PO DAILY 01/03/18 02/12/18 History metoprolol tartrate 0 mg PO DAILY 01/03/18 02/12/18 History Physical Exam Vital signs: Vital Signs 02/13/18 15:00 02/13/18 16:00 02/13/18 17:00 Temperature 98.8 F Pulse Rate 93 H 83 95 H Respiratory Rate 17 12 128 H Blood Pressure 126/80 131/79 Pulse Oximetry 98 97 98 02/13/18 18:00 02/13/18 19:00 02/13/18 20:00 Temperature Pulse Rate 101 H 102 H 93 H Respiratory Rate 45 H 124 H 14 Blood Pressure 123/76 Pulse Oximetry 98 93 L 97 02/13/18 21:00 02/13/18 21:41 02/13/18 22:00 Temperature 99.1 F Pulse Rate 85 85 79 Respiratory Rate 16 Blood Pressure 125/81 Pulse Oximetry 99 02/13/18 23:00 02/14/18 00:00 02/14/18 01:00 Temperature 98.9 F Pulse Rate 76 89 89 Respiratory Rate 18 Blood Pressure 110/72 Pulse Oximetry 98 02/14/18 02:00 02/14/18 03:00 02/14/18 04:00 Temperature 98.8 F Pulse Rate 83 86 88 Respiratory Rate 17 Blood Pressure 113/66 Pulse Oximetry 96 02/14/18 05:00 02/14/18 06:00 02/14/18 07:00 Temperature Pulse Rate 88 82 87 Respiratory Rate Blood Pressure Pulse Oximetry 02/14/18 08:00 02/14/18 08:34 02/14/18 09:00 Temperature 98.3 F Pulse Rate 106 H 102 H 102 H Respiratory Rate 18 Blood Pressure 147/95 H Pulse Oximetry 98 02/14/18 10:00 02/14/18 11:00 02/14/18 11:24 Temperature 98.7 F Pulse Rate 86 102 H 97 H Respiratory Rate 18 Blood Pressure 149/92 H Pulse Oximetry 98 02/14/18 12:00 Temperature Pulse Rate 90 Respiratory Rate Blood Pressure Pulse Oximetry Intake & Output 02/13/18 02/14/18 02/14/18 18:59 06:59 18:59 Intake Total 500 / 500 Output Total 800 / 800 Balance -300 / -300 Weight 205 lb 4.006 oz Intake: Oral 500 / 500 Output: Urine 800 / 800 Other: Date of Last Bowel Movement 02/13/18 02/13/18 02/14/18 # Bowel Movements 1 Narrative: GENERAL: In NAD. NECK: Trachea midline. No JVD. CARDIOVASCULAR: Regular rate and rhythm. RESPIRATORY: No accessory muscle use. Clear to auscultation. Breath sounds equal bilaterally. GASTROINTESTINAL: Abdomen soft, non-tender, distended but soft MUSCULOSKELETAL: Extremities without clubbing, cyanosis, or edema. No obvious deformities. Groin stable. NEUROLOGICAL: Grossly intact. PSYCHIATRIC: Appropriate mood and affect; insight and judgment normal. Results 02/14/18 11:08 02/13/18 09:30 Cardiac Enzymes 02/12/18 02/12/18 02/13/18 Range/Units 19:10 20:31 09:30 AST 19 (15-37) U/L CK-MB (CK-2) 172.3 H (0.5-3.6) ng/mL Troponin I 0.30 H (0.02-0.05) ng/mL Coagulation 02/12/18 Range/Units 20:52 PT 10.3 (9.8-11.6) sec APTT 27.0 (23.4-31.7) sec Lipids 02/13/18 Range/Units 09:30 Triglycerides 104 (42-150) mg/dL Cholesterol 153 (120-200) mg/dL HDL Cholesterol 39.2 L (40.0-60.0) mg/dL Cholesterol/HDL Ratio 3.90 Ratio CBC 02/12/18 02/13/18 02/14/18 Range/Units 19:10 09:30 11:08 WBC 8.4 8.8 7.7 (4.0-11.0) th/mm3 RBC 4.14 L 3.55 L 3.01 L (4.50-5.90) mil/mm3 Hgb 11.7 L 11.0 L 9.4 L (13.0-17.0) gm/dL Hct 36.6 L 31.4 L 26.3 L (39.0-51.0) % Plt Count 564 H 455 H 441 (150-450) th/mm3 Neut # (Auto) 6.5 7.4 (1.8-7.7) th/mm3 Lymph # (Auto) 1.2 0.7 L (1.0-4.8) th/mm3 [place] # (Auto) 0.6 0.7 (0.0-0.9) th/mm3 Eos # (Auto) 0.1 0.0 (0.0-0.4) th/mm3 Baso # (Auto) 0.0 0.0 (0.0-0.2) th/mm3 Comprehensive Metabolic Panel 02/12/18 02/12/18 02/13/18 Range/Units 19:10 20:40 09:30 Sodium 136 139 (136-145) meq/L Potassium 4.1 4.1 (3.5-5.1) meq/L Chloride 101 106 (98-107) meq/L Carbon Dioxide 28.6 24.4 (21.0-32.0) meq/L BUN 7 11 (7-18) mg/dL Creatinine 0.76 0.73 (0.60-1.30) mg/dL Calcium 9.6 9.6 9.1 (8.5-10.1) mg/dL AST 19 (15-37) U/L ALT 18 (12-78) U/L Alkaline Phosphatase 66 (45-117) U/L Total Protein 7.0 (6.4-8.2) g/dL Albumin 2.8 L (3.4-5.0) g/dL Intake and Output 02/13/18 02/14/18 02/14/18 22:59 06:59 14:59 Intake Total 500 / 500 Output Total 800 / 800 Balance -300 / -300 Intake: Oral 500 / 500 Output: Urine 800 / 800 Other: Date of Last Bowel Movement 02/13/18 02/13/18 02/14/18 # Bowel Movements 1 Weight 213 lb 13.574 oz 205 lb 4.006 oz - Imaging and Cardiology Imaging: Impressions Abdomen X-Ray 02/12/18 19:18 CONCLUSION: No acute findings. There is residual contrast in large bowel. Chest X-Ray 02/12/18 20:27 CONCLUSION: No acute findings. Assessment and Plan - Assessment (1) ST elevation (STEMI) myocardial infarction Code(s): I21.3 - ST elevation (STEMI) myocardial infarction of unspecified site Status: Acute - Plan Patient had cardiac catheterization with stent placement to the mid and proximal LAD and angioplasty of the second diagonal artery. Continue Brilinta and baby ASA. Continue post SD care including beta gene. Continue aggressive risk factor modification including high dose atorvastatin. GI evaluation for GIB. The patient is cleared for endoscopy, but platelet inhibitors have to be continued due to the recent stent placement.
[2018-02-14] MEDS: Pantoprazole Inj 80 MG in Sodium Chlor 0.9% Inj 100 ML IV.CONT SCH (15:20)
[2018-02-14 18:48] LABS: Hematocrit 29.3 % (39.0-51.0); Hemoglobin 9.9 gm/dL (13.0-17.0); Mean Corpuscular HGB Conc 33.6 % (32.0-36.0); Mean Corpuscular Volume 89.1 fL (80.0-100.0); Mean Platelet Volume 7.2 fL (7.0-11.0); Platelet Count 522 th/mm3 (150-450); Red Blood Count 3.29 mil/mm3 (4.50-5.90); Red Cell Distribution Width 14.4 % (11.6-17.2); White Blood Count 8.4 th/mm3 (4.0-11.0)
[2018-02-14] MEDS: Temazepam 15 MG Capsule PO PRN (20:48)
[2018-02-15] MEDS: Pantoprazole Inj 80 MG in Sodium Chlor 0.9% Inj 100 ML IV.CONT SCH (01:06)
[2018-02-15] MEDS: Chlorhexidine Gluconate 2% 1 Pack (2 Cloths) TOPICAL SCH (03:29)
[2018-02-15] MEDS: Levothyroxine 112 MCG Tablet PO SCH (06:36)
[2018-02-15 07:41] LABS: Baso % (Auto) 0.6 % (0.0-2.0); Eos # (Auto) 0.1 th/mm3 (0.0-0.4); Eos % (Auto) 1.1 % (0.0-4.0); Hemoglobin 8.6 gm/dL (13.0-17.0); Lymph # (Auto) 0.9 th/mm3 (1.0-4.8); Lymph % (Auto) 13.2 % (9.0-44.0); Mean Corpuscular HGB Conc 33.1 % (32.0-36.0); Mean Corpuscular Hemoglobin 29.5 pg (27.0-34.0); Mean Corpuscular Volume 89.2 fL (80.0-100.0); Mean Platelet Volume 7.4 fL (7.0-11.0); Mono # (Auto) 0.7 th/mm3 (0.0-0.9); Mono % (Auto) 9.7 % (0.0-8.0); Neut # (Auto) 5.4 th/mm3 (1.8-7.7); Neut % (Auto) 75.4 % (16.0-70.0); Platelet Count 417 th/mm3 (150-450); Red Blood Count 2.92 mil/mm3 (4.50-5.90); Red Cell Distribution Width 14.2 % (11.6-17.2); White Blood Count 7.1 th/mm3 (4.0-11.0)
[2018-02-15] MEDS: Folic Acid 1 MG Tablet PO SCH (08:21)
[2018-02-15] MEDS: Famotidine 20 MG Tablet PO SCH ×2 (08:21→20:59)
[2018-02-15] MEDS: Metoprolol Tartrate 25 MG Tablet PO SCH ×2 (08:22→21:00)
--- NOTE | 2018-02-15 10:36 | P.PNIM ---
Subjective Interval history: No complaints, status post EGD, hungry. No nausea or vomiting. No chest pain. No bleeding. Physical Exam Vital signs: Last Vital Signs Temp 98 F 02/15/18 08:00 Pulse 94 H 02/15/18 08:00 Resp 18 02/15/18 08:00 BP 113/75 02/15/18 08:00 Pulse Ox 99 02/15/18 08:00 Intake & Output 02/13/18 02/14/18 02/15/18 02/16/18 06:59 06:59 06:59 06:59 Intake Total 480 / 480 500 / 500 580 / 580 Output Total 1080 / 1080 800 / 800 150 / 150 Balance -600 / -600 -300 / -300 430 / 430 Weight 97 kg 93.1 kg 92 kg Narrative: GENERAL: Well-developed, well-nourished in no distress CARDIOVASCULAR: Regular rate and rhythm. RESPIRATORY: No accessory muscle use. Clear to auscultation. Breath sounds equal bilaterally. GASTROINTESTINAL: Abdomen soft, non-tender, distended but soft MUSCULOSKELETAL: Extremities without clubbing, cyanosis, or edema. No obvious deformities. NEUROLOGICAL: Awake and alert. No obvious cranial nerve deficits. Motor grossly within normal limits. Five out of 5 muscle strength in the arms and legs. Normal speech. l Results Labs CBC & Chem 7: 02/15/18 06:54 02/13/18 09:30 Labs: Microbiology 02/14/18 09:00 Stool Stool Occult Blood (BRIELLE) - Final Hemoccult positive Assessment and Plan Plan This is a 62-year-old male with recently diagnosed melanoma in his back status post excision several days ago, GERD and kidney stones. He presents to the emergency department complaining of sharp constant abdominal discomfort. Recent PET scan concerning for metastatic disease. Outpatient abdominal CT showed abnormal appearance of the distal thoracic esophagus and GE junction which is hypermetabolic on recent PET and suspicious for a primary malignancy. Patient scheduled for EGD next week by Dr. Roberson. Stat EKG showed ST elevation in the inferior leads and lateral leads. Troponin 0.3. Developed Vfib arrest Status post defibrillation and CPR. Underwent emergent cardiac catheterization with stenting of the LAD and second diagonal by Dr. Pierce STEMI - status post stent to proximal LAD, + angioplasty of 2nd diagonal, currently pain-free, continue aspirin, Brilinta, Lopressor, nitrate, high-dose statin. Patient cleared for endoscopy but antiplatelets need to be continued. V. fib arrest status post defibrillation and CPR- secondary to above. EF 45% Abdominal pain and distention secondary to constipation with melena and anemia, rule out GI bleed - ? Mass abdominal on CT per admission report done as OP CT, patient was supposed to follow-up with Dr. Roberson. Hemoglobin dropped. GI consulted, abdominal chest x-ray showed no obstruction. Continue Protonix, transfuse as needed, status post EGD which showed a circumferential mass in the middle third of the esophagus and lower third esophagus and in the fundus and cardia. Biopsies done. Follow-up results as outpatient. Hemoglobin dropped again today to 8.6 from 9.9, recheck hemoglobin tomorrow. Oncology following, patient wants to be seen by radiation on allergy for possible palliative radiotherapy in case bleeding happens again. S/P wide excision melanoma - OP ff up with Dr. Marquez DVT prophylaxis with SCD and early ambulation Discharge home tomorrow if hemoglobin is stable Progress Note: Quality VTE Deep Vein Thrombosis/Pulmonary Embolism Present on Admission: No
--- NOTE | 2018-02-15 11:28 | GIPROC ---
[facility] [address] [facility]. [facility], [address] EGD PROCEDURE REPORT EXAM DATE: 02/15/2018 PATIENT NAME: Brock Dubon MR #: [id number] BIRTHDATE: 1955 ATTENDING: Hero Sinha MD ORDER #: [id number] DEPUTY CONTROLLER: Mouna Foster and Sergio Mullen STATUS: inpatient INDICATIONS: The patient is a 62 yr old male here for an EGD due to dysphagia and abnormal CT of the GI tract PROCEDURE PERFORMED: EGD w/ biopsy MEDICATIONS: Per Anesthesia and None. TOPICAL ANESTHETIC: CONSENT: The patient understands the risks and benefits of the procedure and understands that these risks include, but are not limited to: sedation, allergic reaction, infection, perforation and/or bleeding. Alternative means of evaluation and treatment include, among others: physical exam, x-rays, and/or surgical intervention. The patient elects to proceed with this endoscopic procedure. medical equipment was checked for proper function. Hand hygiene and appropriate measures for infection prevention was taken. After the risks, benefits and alternatives of the procedure were thoroughly explained, Informed consent was verified, confirmed and timeout was successfully executed by the treatment team. The patient was anesthetized with topical anesthesia and the Pentax EG-[id number] endoscope was introduced through the mouth and advanced to the second portion of the duodenum. Retroflexed views revealed Mass see in cardia and fundus,extending from esophagus The gastroscope was then slowly withdrawn and removed. ESOPHAGUS: A circumferential fungating, polypoid shaped and ulcerated mass with friable surfaces was found in the middle third of the esophagus and lower third esophagus. Multiple biopsies were performed. DUODENUM: The duodenal mucosa appeared normal in the entire duodenum. STOMACH: A circumferential fungating and polypoid shaped mass with friable surfaces was found in the cardia and gastric fundus. ADVERSE EVENTS: There were no complications. IMPRESSIONS: 1. Circumferential mass was found in the middle third of the esophagus and lower third esophagus; multiple biopsies were performed 2. Normal duodenal mucosa in the entire duodenum 3. Circumferential mass was found in the cardia and gastric fundus 4. Retroflexed views revealed Mass see in cardia and fundus,extending from esophagus RECOMMENDATIONS: Await biopsy results. Biopsy results will not be ready for 7-10 days. If you don't hear from us in two weeks, call our office for biopsy results. PATIENT CONDITION: stable DISPOSITION: Inpatient REPEAT EXAM: Return as needed for EGD Hero Sinha MD eSigned: Hero Sinha MD 02/15/2018 11:28 AM cc: PATIENT NAME: Brock Dubon Brenda MR#: [id number]
--- NOTE | 2018-02-15 15:54 | P.PNCA ---
Subjective Interval history: Patient denies any CP, pressure, palpitations, dizziness, edema or SOB. Patient is very concerned about the findings during his EGD. Medications and Allergies Allergies Allergy/AdvReac Type Severity Reaction Status Date / Time azithromycin AdvReac Migraine Verified 02/12/18 18:08 [From NexSteppe Z-Mitchel] Home Medications Medication Instructions Recorded Confirmed Type levothyroxine [Synthroid] 137 mcg PO DAILY 01/03/18 02/12/18 History losartan 0 mg PO DAILY 01/03/18 02/12/18 History metoprolol tartrate 0 mg PO DAILY 01/03/18 02/12/18 History Active Medications: Active Medications Al Hydrox/Mg Hydrox/Simethicone (Mag-Al Plus Susp Liq) 30 ml PO Q6H PRN PRN Reason: DYSPEPSIA OR HEARTBURN Al Hydroxide/Mg Hydroxide (Milk Of Magnesia Liq) 30 ml PO Q12H PRN PRN Reason: Mild Constipation Last Admin: 02/13/18 10:53 Dose: 30 ml Aspirin (Aspirin Chew) 81 mg PO DAILY [facility] Last Admin: 02/14/18 08:48 Dose: 81 mg Atorvastatin Calcium (Lipitor) 80 mg PO HS [facility] Last Admin: 02/14/18 20:48 Dose: 80 mg Bisacodyl (Dulcolax Supp) 10 mg RECTAL DAILY PRN PRN Reason: SEVERE CONSITIPATION Calcium Carbonate (Tums Chew) 500 mg CHEW Q6H PRN PRN Reason: DYSPEPSIA OR HEARTBURN Last Admin: 02/13/18 16:59 Dose: 500 mg Chlorhexidine Gluconate (Chlorhexidine 2% Cloth) 3 pack TOPICAL DAILY@0400 [facility] Stop: 02/18/18 03:59 Last Admin: 02/15/18 03:29 Dose: Not Given Chlorhexidine Gluconate (Chlorhexidine 2% Cloth) 3 pack TOPICAL DAILY@0400 PRN PRN Reason: Extra cloth needed Stop: 02/18/18 03:59 Famotidine (Pepcid) 20 mg PO BID [facility] Last Admin: 02/15/18 08:21 Dose: 20 mg Flumazenil (Romazecon Inj) 0.2 mg IV.PUSH Q1M PRN PRN Reason: OVERSEDATION Folic Acid (Folic Acid) 1 mg PO DAILY [facility] Stop: 02/18/18 08:59 Last Admin: 02/15/18 08:21 Dose: 1 mg Haloperidol Lactate (Haldol Inj) 1 mg IV.PUSH Q15M PRN PRN Reason: for severe agitation Pantoprazole Sodium 80 mg/ (Sodium Chloride) 100 mls @ 10 mls/hr IV.CONT CONT [facility] Last Admin: 02/15/18 01:06 Dose: 10 mls/hr Lactulose (Lactulose Liq) 30 ml PO DAILY PRN PRN Reason: SEVERE CONSITIPATION Levothyroxine Sodium (Synthroid) 112 mcg PO DAILY@0600 [facility] Last Admin: 02/15/18 06:36 Dose: 112 mcg Levothyroxine Sodium (Synthroid) 25 mcg PO DAILY@0600 [facility] Last Admin: 02/15/18 06:36 Dose: 25 mcg Lorazepam (Ativan) 1 mg PO Q4H PRN PRN Reason: for CIWA 8-10 Lorazepam (Ativan) 2 mg PO Q2H PRN PRN Reason: for CIWA 11-14 Lorazepam (Ativan Inj) 2 mg IV.PUSH Q2H PRN PRN Reason: for CIWA 11-14 Lorazepam (Ativan Inj) 2 mg IV.PUSH Q1H PRN PRN Reason: for CIWA 15-20 Lorazepam (Ativan Inj) 2 mg IV.PUSH Q15M PRN PRN Reason: for CIWA > 20 Lorazepam (Ativan Inj) 1 mg IV.PUSH Q4H PRN PRN Reason: for CIWA 8-10 Losartan Potassium (Cozaar) 25 mg PO DAILY [facility] Last Admin: 02/15/18 08:21 Dose: 25 mg Metoprolol Tartrate (Lopressor) 25 mg PO BID [facility] Last Admin: 02/15/18 08:22 Dose: 25 mg Miscellaneous (Pill Splitter) 1 each OTHER UNSCH PRN PRN Reason: PILL SPLITTING Miscellaneous Information (Misc Nursing Information) 1 each OTHER UNSCH PRN PRN Reason: SEE LABEL COMMENTS Stop: 02/16/18 11:44 Multivitamins/Minerals (Theragran-M) 1 tab PO DAILY [facility] Stop: 02/18/18 08:59 Last Admin: 02/14/18 08:47 Dose: 1 tab Nitroglycerin (Nitrostat Sl) 0.4 mg SL Q5M PRN PRN Reason: CHEST PAIN Last Admin: 02/12/18 20:43 Dose: 0.4 mg Senna/Docusate Sodium (Chantal-Colace) 1 tab PO BID [facility] Last Admin: 02/14/18 20:48 Dose: Not Given Sennosides (Senokot) 17.2 mg PO Q12H PRN PRN Reason: Moderate Constipation Last Admin: 02/13/18 10:53 Dose: 17.2 mg Sodium Chloride (Ns Flush) 2 ml IV.FLUSH BID [facility] Last Admin: 02/14/18 20:48 Dose: Not Given Sodium Chloride (Ns Flush) 2 ml IV.FLUSH PRN PRN PRN Reason: FLUSH AFTER USING IV ACCESS Last Admin: 02/13/18 09:25 Dose: 2 ml Temazepam (Restoril) 15 mg PO HS PRN PRN Reason: SLEEP Last Admin: 02/14/18 20:48 Dose: 15 mg Thiamine HCl (Vitamin B1) 100 mg PO DAILY [facility] Last Admin: 02/15/18 08:21 Dose: 100 mg Ticagrelor (Brilinta) 90 mg PO BID [facility] Last Admin: 02/14/18 20:48 Dose: 90 mg Physical Exam Vital signs: Vital Signs 02/14/18 16:00 02/14/18 17:00 02/14/18 18:00 Temperature Pulse Rate 92 H 94 H 90 Respiratory Rate Blood Pressure Pulse Oximetry 02/14/18 19:00 02/14/18 20:00 02/14/18 21:00 Temperature 99.4 F Pulse Rate 101 H 104 H 98 H Respiratory Rate 18 Blood Pressure 109/80 Pulse Oximetry 93 L 93 L 02/14/18 22:00 02/14/18 23:00 02/15/18 00:00 Temperature Pulse Rate 86 81 76 Respiratory Rate Blood Pressure Pulse Oximetry 02/15/18 01:00 02/15/18 02:00 02/15/18 03:00 Temperature Pulse Rate 86 84 85 Respiratory Rate Blood Pressure Pulse Oximetry 02/15/18 04:00 02/15/18 05:00 02/15/18 06:00 Temperature 98.9 F Pulse Rate 84 86 90 Respiratory Rate 18 Blood Pressure 106/62 Pulse Oximetry 93 L 02/15/18 08:00 02/15/18 11:29 02/15/18 11:30 Temperature 98 F 98.3 F Pulse Rate 94 H 93 H 94 H Respiratory Rate 18 19 20 Blood Pressure 113/75 130/79 117/78 Pulse Oximetry 99 100 02/15/18 11:45 02/15/18 12:00 Temperature 98.3 F Pulse Rate 95 H 98 H Respiratory Rate 18 24 Blood Pressure 104/70 130/79 Pulse Oximetry 98 Intake & Output 02/14/18 02/15/18 02/15/18 18:59 06:59 18:59 Intake Total 480 / 480 100 / 100 200 / 200 Output Total 150 / 150 Balance 330 / 330 100 / 100 200 / 200 Weight 92 kg Intake: IV 100 / 100 Protonix Inj 80 MG In NS Inj 100 / 100 100 ML @ 10 mls/hr IV.CONT CONT [facility] Rx#:[id number] Oral 480 / 480 Anesthesia Amount 200 / 200 Output: Urine 150 / 150 Other: # Voids 3 Date of Last Bowel Movement 02/14/18 02/14/18 # Bowel Movements 2 - Constitutional no acute distress - Routine HEENT Exam Head: Present: normocephalic Eye: Present: PERRL ENT: Present: mucous membranes moist - Routine Neck Exam Present: full ROM - Routine Respiratory Exam Present: CTA bilaterally - Routine Cardiovascular Exam Present: S1, S2. Absent: murmur, gallop, rubs - Routine Abdominal Exam Present: normoactive bowel sounds - Routine Extremities Exam Present: full ROM, pulses intact, normal capillary refill. Absent: cyanosis, clubbing, edema - Routine Skin Exam Present: intact - Routine Neurological Exam Present: oriented X3 - Detailed Neurological Exam: Coma Scale Eye Opening: Spontaneous Verbal Response: Oriented Motor Response: Obey commands [place] Coma Scale Total: 15 - Routine Psychiatric Exam Present: depressed Comments: Patient very concerned about GI results. Results 02/15/18 06:54 02/13/18 09:30 CBC 02/14/18 02/14/18 02/15/18 Range/Units 11:08 18:34 06:54 WBC 7.7 8.4 7.1 (4.0-11.0) th/mm3 RBC 3.01 L 3.29 L 2.92 L (4.50-5.90) mil/mm3 Hgb 9.4 L 9.9 L 8.6 L (13.0-17.0) gm/dL Hct 26.3 L 29.3 L 26.0 L (39.0-51.0) % Plt Count 441 522 H 417 (150-450) th/mm3 Neut # (Auto) 5.4 (1.8-7.7) th/mm3 Lymph # (Auto) 0.9 L (1.0-4.8) th/mm3 [place] # (Auto) 0.7 (0.0-0.9) th/mm3 Eos # (Auto) 0.1 (0.0-0.4) th/mm3 Baso # (Auto) 0.0 (0.0-0.2) th/mm3 Intake and Output 02/15/18 02/15/18 02/15/18 06:59 14:59 22:59 Intake Total 100 / 100 200 / 200 Balance 100 / 100 200 / 200 Intake: IV 100 / 100 Protonix Inj 80 MG In NS Inj 100 / 100 100 ML @ 10 mls/hr IV.CONT CONT [facility] Rx#:[id number] Anesthesia Amount 200 / 200 Other: Date of Last Bowel Movement 02/14/18 Weight 92 kg Assessment and Plan - Assessment (1) ST elevation (STEMI) myocardial infarction Code(s): I21.3 - ST elevation (STEMI) myocardial infarction of unspecified site Status: Acute - Plan Patient had EGD with biopsy, biopsy results pending, GI evaluation in progress. No new cardiac issues at this time, continue current cardiac treatment plan. Continue anticoagulation with Brilinta and baby ASA post PCI, and post WI care including beta gene. We will continue to monitor patient during his hospitalization. The patient was seen and evaluated by Dr. Pierce who participated in care, management and decision making. - Attending Attestation Patient seen and examined. I reviewed and agree with the evaluation and plan as presented. GI evaluation, EGD today. Continue Brilinta and baby ASA post PCI. Aggressive risk factor modification.
[2018-02-15] MEDS: Senna/Docusate Sodium 8.6/50 MG Tablet PO SCH ×2 (15:56→20:59)
[2018-02-15] MEDS: Multivitamin/Minerals Therapeutic Tablet PO SCH (16:02)
--- NOTE | 2018-02-16 01:27 | MB ---
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 HISTORY OF PRESENT ILLNESS: Tahir is a pleasant 62-year-old male. He has a history of papillary thyroid cancer that was diagnosed 30 years ago, in 1988, when he used to live in [facility]. He states that he underwent surgery followed by radioactive iodine treatment. Since then, he has been on thyroid replacement medication. He also has a history of hypertension and kidney stone. He came to the emergency room on 01/03/2018 for severe right-sided abdominal pain. He had a CT scan of the abdomen and pelvis without contrast, which showed a right kidney stone. He was discharged to be followed up with the urologist. The patient states that he was diagnosed with malignant melanoma of the skin of the posterior right shoulder by the painter foreman recently. I do not have that report available. The patient was referred to Dr. Davila surgical oncologist. According to his note, it was intermediate-thickness melanoma. He had ordered radiological studies for staging workup. Patient had a MRI of the brain on 02/01/2018, which showed a 5 mm metastatic lesion in the right centrum semiovale. A PET scan was done on 02/05/2018, which showed ascites with omental caking and large hiatal hernia with significant uptake in the hernia going into the stomach. Dr. Davila has discussed with the patient that there is a possibility of another primary cancer. It was decided that the patient should undergo wide local excision and sentinel lymph node sampling of the melanoma. This was done on 02/08/2018. The pathology report did not show any residual melanoma at the original biopsy site of right posterior shoulder. Both sentinel lymph nodes are negative. Dr. Davila ordered a CT scan of the abdomen and pelvis with contrast on 02/11/2018. This showed interval development of extensive omental caking and peritoneal carcinomatosis with ascites. This was not present on the previous CT scan of the abdomen and pelvis from 01/03/2018. Also, it shows distal lower esophageal and gastroesophageal junction thickening. There is a gastrohepatic lymphadenopathy noted as well. The prostate was found to be enlarged. A day after that CT scan, on 02/12/2018, the patient came to the emergency room again complaining of abdominal bloating and discomfort. While he was in the emergency room, he started having mid sternal chest pain. EKG was done, which showed ST elevation. The patient was given sublingual nitro and started on heparin. Subsequently, he went into ventricular fibrillation and arrest. CPR was carried out and patient was revived. He underwent emergent cardiac catheterization, which shows severe coronary artery disease. He had angioplasty and stent placement. He was started on blood thinners. The patient has developed GI bleeding. GI was consulted. The patient underwent upper endoscopy today. This showed an distal esophageal mass extending into stomach. Biopsies were done. The results of those are still pending. I have been asked to see the patient for further evaluation. The patient denies any previous history of anorexia and weight loss. He has been having abdominal discomfort with distention for at least 4 weeks or so. He is very anxious and wants to leave the hospital as soon as possible. The rest of the review of systems is negative. PAST MEDICAL HISTORY: Thyroid cancer, papillary type, diagnosed 30 years ago. Hypertension, kidney stones and cutaneous melanoma. PAST SURGICAL HISTORY: Thyroidectomy in 1988 in [facility]. Recently, he had melanoma removed from the posterior right shoulder. ALLERGIES: ZITHROMAX. MEDICATIONS PRIOR TO COMING TO THE HOSPITAL: 1. Levothyroxine. 2. Losartan. 3. Metoprolol. FAMILY HISTORY: Father is alive with bladder cancer. Mother is alive with no malignancy. He has 1 brother, 2 sisters and 1 daughter, all are alive and well. SOCIAL HISTORY: The patient is . He used to smoke half pack a day for 25 years, quit smoking about a year ago. He drinks alcohol, 2 drinks every day. 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 PHYSICAL EXAMINATION: GENERAL: He is a well-developed, well-nourished white male, in no apparent distress. VITAL SIGNS: Temperature 99.3, heart rate is 101, respiratory rate is 20, blood pressure 124/69. HEENT: PERRLA. EOMI, anicteric. No oral lesions noted. NECK: No lymphadenopathy noted. LUNGS: Clear. No wheezing, rhonchi or rales. HEART: Regular rate and rhythm. ABDOMEN: Distended, ascites noted. EXTREMITIES: No pedal edema. NEUROLOGIC: Awake, alert and oriented x 3. SKIN: No significant lesions noted. ASSESSMENT: 1. Distal esophageal/gastroesophageal junction mass extending into stomach with metastasis to gastrohepatic lymph node and omental caking with peritoneal carcinomatosis. 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 2. New onset ST elevation myocardial infarction, status post angioplasty and stent placement. 3. Gastrointestinal bleeding, most likely from the malignancy precipitated by the blood thinners. 4. Distant history of papillary thyroid cancer about 30 years ago. He underwent surgery followed by radioactive iodine treatment. 5. Hypertension. 6. Kidney stones. 7. A 5 mm solitary brain metastasis. 8. 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 S/P wide local excision and sentinel lymph node sampling few weeks ago. PLAN: I have reviewed his available records and I had an extensive discussion with the patient regarding metastatic gastroesophageal cancer. I have reviewed all the radiological studies. He had a CT scan of the abdomen and pelvis on 01/03/2018, which showed kidney stone. He had an MRI of the brain on 02/01/2018, which showed a 5 mm metastatic lesion in the right centrum semiovale. PET scan was done on 02/05/2018, which show extensive metastatic disease with peritoneal carcinomatosis. The CT scan of the abdomen and pelvis was repeated on 02/11/2018, which clearly confirmed interval omental caking with peritoneal carcinomatosis and ascites. His prostate is also found to be enlarged. My recommendation is to consult radiation oncology for palliative radiation therapy to stop the bleeding from the primary malignancy site, given that he needs to be on blood thinners for at least 4 weeks due to the coronary stent. My recommendation is for palliative chemotherapy. However, due to the acute major cardiac event with acute MT, ventricular fibrillation and cardiac arrest requiring a defibrillator and chest compression, we will hold off on palliative chemotherapy. Once the patient is more stable cardiac cortés, then we will offer him palliative chemotherapy as an outpatient. He is anxious to leave the hospital. I advised him that he should stay in the hospital at least until he sees the radiation oncologist so that if he starts bleeding again, then he could have palliative radiation therapy to stop the bleeding. The patient agreed to stay in the hospital. Consult radiation oncology. I have discussed the case with hospitalist. I will order the tumor markers, CEA and PSA. Further recommendations based on his hospital stay. Thank you for asking my opinion. MD LUCY Vicente/marito , 12:08 AM , 12:30 AM MTDLeatha
[2018-02-16] MEDS: Chlorhexidine Gluconate 2% 1 Pack (2 Cloths) TOPICAL SCH (06:08)
[2018-02-16] MEDS: Levothyroxine 112 MCG Tablet PO SCH (06:08)
--- NOTE | 2018-02-16 07:40 | P.PNIM ---
Physical Exam Vital signs: Last Vital Signs Temp 98.9 F 02/16/18 04:00 Pulse 94 H 02/16/18 06:00 Resp 20 02/16/18 04:00 BP 122/79 02/16/18 04:00 Pulse Ox 97 02/16/18 04:00 Intake & Output 02/14/18 02/15/18 02/16/18 02/17/18 06:59 06:59 06:59 06:59 Intake Total 500 / 500 580 / 580 680 / 680 Output Total 800 / 800 150 / 150 Balance -300 / -300 430 / 430 680 / 680 Weight 93.1 kg 92 kg Narrative: GENERAL: Well-developed, well-nourished in no distress CARDIOVASCULAR: Regular rate and rhythm. RESPIRATORY: No accessory muscle use. Clear to auscultation. Breath sounds equal bilaterally. GASTROINTESTINAL: Abdomen soft, non-tender, distended but soft MUSCULOSKELETAL: Extremities without clubbing, cyanosis, or edema. No obvious deformities. NEUROLOGICAL: Awake and alert. No obvious cranial nerve deficits. Motor grossly within normal limits. Five out of 5 muscle strength in the arms and legs. Normal speech. l Results Labs CBC & Chem 7: 02/15/18 06:54 02/13/18 09:30 Assessment and Plan (1) ST elevation (STEMI) myocardial infarction: Code(s): I21.3 - ST elevation (STEMI) myocardial infarction of unspecified site Status: Acute Plan This is a 62-year-old male with recently diagnosed melanoma in his back status post excision several days ago, GERD and kidney stones. He presents to the emergency department complaining of sharp constant abdominal discomfort. Recent PET scan concerning for metastatic disease. Outpatient abdominal CT showed abnormal appearance of the distal thoracic esophagus and GE junction which is hypermetabolic on recent PET and suspicious for a primary malignancy. Patient scheduled for EGD next week by Dr. Roberson. Stat EKG showed ST elevation in the inferior leads and lateral leads. Troponin 0.3. Developed Vfib arrest Status post defibrillation and CPR. Underwent emergent cardiac catheterization with stenting of the LAD and second diagonal by Dr. Pierce STEMI - status post stent to proximal LAD, + angioplasty of 2nd diagonal, currently pain-free, continue aspirin, Brilinta, Lopressor, nitrate, high-dose statin. Patient cleared for endoscopy but antiplatelets need to be continued at least for month. V. fib arrest status post defibrillation and CPR- secondary to above. EF 45% Abdominal pain and distention secondary to constipation with melena and anemia, rule out GI bleed - ? Mass abdominal on CT per admission report done as OP CT, patient was supposed to follow-up with Dr. Roberson. Hemoglobin dropped. GI consulted, abdominal chest x-ray showed no obstruction. Continue Protonix, transfuse as needed, status post EGD which showed a circumferential mass in the middle third of the esophagus and lower third esophagus and in the fundus and cardia. Biopsies done. Follow-up results as outpatient. Awaiting repeat Hemoglobin, if stable or better, may discharge. Discussed with oncology after consultation, recommendation is radiation oncolgy consultation for paliative radiotherapy to stop the bleeding, hold off on palliative chemotherapy for now due to acute UT and V. Fib arrest. allergy for possible palliative radiotherapy in case bleeding happens again. S/P wide excision melanoma - OP ff up with Dr. Marquez DVT prophylaxis with SCD and early ambulation Discharge home tomorrow if hemoglobin is stable Progress Note: Quality VTE Deep Vein Thrombosis/Pulmonary Embolism Present on Admission: No _ (1) ST elevation (STEMI) myocardial infarction Qualifiers: Involved coronary artery:
[2018-02-16] MEDS: Folic Acid 1 MG Tablet PO SCH (08:02)
[2018-02-16] MEDS: Famotidine 20 MG Tablet PO SCH (08:02)
[2018-02-16] MEDS: Metoprolol Tartrate 25 MG Tablet PO SCH (08:02)
[2018-02-16 08:11] LABS: Baso # (Auto) 0.1 th/mm3 (0.0-0.2); Baso % (Auto) 0.7 % (0.0-2.0); Eos # (Auto) 0.1 th/mm3 (0.0-0.4); Eos % (Auto) 1.1 % (0.0-4.0); Hematocrit 26.5 % (39.0-51.0); Hemoglobin 8.8 gm/dL (13.0-17.0); Lymph # (Auto) 1.2 th/mm3 (1.0-4.8); Lymph % (Auto) 11.5 % (9.0-44.0); Mean Corpuscular HGB Conc 33.1 % (32.0-36.0); Mean Corpuscular Hemoglobin 29.5 pg (27.0-34.0); Mean Corpuscular Volume 89.2 fL (80.0-100.0); Mean Platelet Volume 7.6 fL (7.0-11.0); Mono # (Auto) 1.1 th/mm3 (0.0-0.9); Mono % (Auto) 10.9 % (0.0-8.0); Neut # (Auto) 7.6 th/mm3 (1.8-7.7); Neut % (Auto) 75.8 % (16.0-70.0); Platelet Count 503 th/mm3 (150-450); Red Blood Count 2.97 mil/mm3 (4.50-5.90); Red Cell Distribution Width 14.6 % (11.6-17.2)
--- NOTE | 2018-02-16 10:26 | P.PNONC ---
Subjective Interval history: Afebrile Patient sitting up in chair at bedside completely dressed Desperately wants to go home Asking what time the radiation doctor will be here Objective Vital Signs/Intake & Output: Vital Signs 02/15/18 11:29 02/15/18 11:30 02/15/18 11:45 Temperature 98.3 F Pulse Rate 93 H 94 H 95 H Respiratory Rate 19 20 18 Blood Pressure 130/79 117/78 104/70 Pulse Oximetry 100 02/15/18 12:00 02/15/18 16:00 02/15/18 18:00 Temperature 98.3 F 98.4 F Pulse Rate 98 H 101 H 101 H Respiratory Rate 24 18 Blood Pressure 130/79 131/92 H Pulse Oximetry 98 96 02/15/18 19:00 02/15/18 20:00 02/15/18 20:58 Temperature 99.3 F Pulse Rate 99 H 101 H Respiratory Rate 20 Blood Pressure 124/69 Pulse Oximetry 96 98 02/15/18 21:00 02/15/18 22:00 02/15/18 23:00 Temperature Pulse Rate 94 H 100 H 80 Respiratory Rate Blood Pressure Pulse Oximetry 02/16/18 00:00 02/16/18 01:19 02/16/18 02:00 Temperature 99.4 F Pulse Rate 86 88 90 Respiratory Rate 20 Blood Pressure 117/70 Pulse Oximetry 99 02/16/18 03:00 02/16/18 04:00 02/16/18 05:00 Temperature 98.9 F Pulse Rate 84 87 82 Respiratory Rate 20 Blood Pressure 122/79 Pulse Oximetry 97 02/16/18 06:00 02/16/18 08:00 Temperature 98.4 F Pulse Rate 94 H 100 H Respiratory Rate 16 Blood Pressure 143/89 H Pulse Oximetry 99 Intake & Output 02/15/18 02/16/18 02/16/18 18:59 06:59 18:59 Intake Total 200 / 200 480 / 480 Balance 200 / 200 480 / 480 Intake: Oral 480 / 480 Anesthesia Amount 200 / 200 Other: # Voids 3 Date of Last Bowel Movement 02/14/18 02/14/18 02/16/18 # Bowel Movements 0 Result Diagrams: 02/16/18 05:45 02/13/18 09:30 Laboratory Results: Laboratory Results - last 24 hr 02/15/18 02/16/18 02/16/18 13:49 05:45 05:45 WBC 10.0 RBC 2.97 L Hgb 8.8 L Hct 26.5 L MCV 89.2 MCH 29.5 MCHC 33.1 RDW 14.6 Plt Count 503 H MPV 7.6 Neut % (Auto) 75.8 H Lymph % (Auto) 11.5 [place] % (Auto) 10.9 H Eos % (Auto) 1.1 Baso % (Auto) 0.7 Neut # (Auto) 7.6 Lymph # (Auto) 1.2 [place] # (Auto) 1.1 H Eos # (Auto) 0.1 Baso # (Auto) 0.1 WBC Differential . Differential Comment Auto diff final POC Glucose 135 H Carcinoembryonic Ag 11.9 H Prostate Specific Ag 02/16/18 05:45 WBC RBC Hgb Hct MCV MCH MCHC RDW Plt Count MPV Neut % (Auto) Lymph % (Auto) [place] % (Auto) Eos % (Auto) Baso % (Auto) Neut # (Auto) Lymph # (Auto) [place] # (Auto) Eos # (Auto) Baso # (Auto) WBC Differential Differential Comment POC Glucose Carcinoembryonic Ag Prostate Specific Ag 1.40 Culture Results: Microbiology 02/14/18 09:00 Stool Occult Blood (BRIELLE) - Final Stool Hemoccult positive Medications: Active Medications Generic Name Dose Route Start Last Admin Trade Name Freq PRN Reason Stop Dose Admin Al Hydroxide/Mg Hydroxide 30 ml 02/13/18 10:36 02/13/18 10:53 Milk Of Magnesia Liq PO 30 ml Q12H PRN Administration Mild Constipation Aspirin 81 mg 02/13/18 09:00 02/16/18 08:01 Aspirin Chew PO 81 mg DAILY DILCIA Administration Atorvastatin Calcium 80 mg 02/12/18 23:50 02/15/18 21:00 Lipitor PO 80 mg HS DILCIA Administration Calcium Carbonate 500 mg 02/13/18 16:53 02/13/18 16:59 Tums Chew CHEW 500 mg Q6H PRN Administration DYSPEPSIA OR HEARTBURN Chlorhexidine Gluconate 3 pack 02/13/18 04:00 02/16/18 06:08 Chlorhexidine 2% Cloth TOPICAL 02/18/18 03:59 Not Given DAILY@0400 [facility] Famotidine 20 mg 02/13/18 21:00 02/16/18 08:02 Pepcid PO 20 mg BID DILCIA Administration Folic Acid 1 mg 02/13/18 09:00 02/16/18 08:02 Folic Acid PO 02/18/18 08:59 1 mg DAILY DILCIA Administration Pantoprazole Sodium 80 mg/ 100 mls @ 10 mls/hr 02/14/18 15:00 02/15/18 01:06 Sodium Chloride IV.CONT 10 mls/hr CONT DILCIA Administration Levothyroxine Sodium 112 mcg 02/13/18 09:00 02/16/18 06:08 Synthroid PO 112 mcg DAILY@0600 DILCIA Administration Levothyroxine Sodium 25 mcg 02/13/18 09:00 02/16/18 06:08 Synthroid PO 25 mcg DAILY@0600 DILCIA Administration Losartan Potassium 25 mg 02/13/18 09:16 02/16/18 08:01 Cozaar PO 25 mg DAILY DILCIA Administration Metoprolol Tartrate 25 mg 02/13/18 09:00 02/16/18 08:02 Lopressor PO 25 mg BID DILCIA Administration Multivitamins/Minerals 1 tab 02/13/18 09:00 02/15/18 16:02 Theragran-M PO 02/18/18 08:59 1 tab DAILY DILCIA Administration Nitroglycerin 0.4 mg 02/12/18 20:28 02/12/18 20:43 Nitrostat Sl SL 0.4 mg Q5M PRN Administration CHEST PAIN Senna/Docusate Sodium 1 tab 02/13/18 21:00 02/15/18 20:59 Chantal-Colace PO 1 tab BID DILCIA Administration Sennosides 17.2 mg 02/13/18 10:36 02/13/18 10:53 Senokot PO 17.2 mg Q12H PRN Administration Moderate Constipation Sodium Chloride 2 ml 02/13/18 09:00 02/15/18 21:00 Ns Flush IV.FLUSH Not Given BID DILCIA Sodium Chloride 2 ml 02/12/18 23:26 02/13/18 09:25 Ns Flush IV.FLUSH 2 ml PRN PRN Administration FLUSH AFTER USING IV ACCESS Temazepam 15 mg 02/12/18 23:26 02/14/18 20:48 Restoril PO 15 mg HS PRN Administration SLEEP Thiamine HCl 100 mg 02/13/18 09:00 02/16/18 08:01 Vitamin B1 PO 100 mg DAILY DILCIA Administration Ticagrelor 90 mg 02/13/18 09:00 02/16/18 08:01 Brilinta PO 90 mg BID DILCIA Administration Objective Remarks: GENERAL: Anxious. SKIN: Warm and dry. HEAD: Normocephalic. EYES: No scleral icterus. No injection or drainage. NECK: Supple, trachea midline. No JVD or lymphadenopathy. CARDIOVASCULAR: Regular rate and rhythm without murmurs. RESPIRATORY: Breath sounds equal bilaterally. No accessory muscle use. GASTROINTESTINAL: Protuberant but nontender. EXTREMITIES: No cyanosis, or edema. MUSCULOSKELETAL: Adequate muscle tone. NEUROLOGICAL: No obvious focal deficit. Awake, alert, and oriented x3. Assessment/Plan - Plan 62-year-old male with history of papillary thyroid cancer that was diagnosed 30 years ago found to have GI bleeding. He has recently been under the care of Dr. Little after PET scan showed ascites and omental caking with significant uptake in the hernia going into the stomach. CT scan of abdomen and pelvis on 02/11/18 showed peritoneal carcinomatosis with ascites. He was also found to have enlarged prostate. Furthermore MRI of the brain on 02/01/18 showed a 5 mm metastatic lesion in the right centrum semi-ovale. Radiation oncology has been consulted for palliative therapy to stop bleeding from the primary malignancy site as he also recently had coronary stent placement and needs to be on blood thinners for at least 4 weeks. 1. Patient had EGD with biopsy yesterday. Biopsy was taken from the esophagus. Discussed with patient that he can follow-up outpatient for these results. 2. We discussed that it is very important for him to see radiation oncology prior to discharge today as he is on anticoagulation due to recent cardiac stenting. He has recently also had GI bleed from the mass. He needs to be evaluated for palliative radiation to prevent further bleeding. 3. Patient clear for discharge from medical oncology standpoint once he sees radiation oncology.
[2018-02-16] MEDS: Senna/Docusate Sodium 8.6/50 MG Tablet PO SCH (10:49)
[2018-02-16] MEDS: Multivitamin/Minerals Therapeutic Tablet PO SCH (10:49)
--- NOTE | 2018-02-16 12:22 | P.PNGI ---
Subjective Interval history: Patient sitting up in bedside chair Denies any difficulty swallowing with meals Patient post EGD <Mili Khan - Last Filed: 02/16/18 12:18> Physical Exam Vital signs: Vital Signs 02/15/18 16:00 02/15/18 18:00 02/15/18 19:00 Temperature 98.4 F Pulse Rate 101 H 101 H 99 H Respiratory Rate 18 Blood Pressure 131/92 H Pulse Oximetry 96 02/15/18 20:00 02/15/18 20:58 02/15/18 21:00 Temperature 99.3 F Pulse Rate 101 H 94 H Respiratory Rate 20 Blood Pressure 124/69 Pulse Oximetry 96 98 02/15/18 22:00 02/15/18 23:00 02/16/18 00:00 Temperature 99.4 F Pulse Rate 100 H 80 86 Respiratory Rate 20 Blood Pressure 117/70 Pulse Oximetry 99 02/16/18 01:19 02/16/18 02:00 02/16/18 03:00 Temperature Pulse Rate 88 90 84 Respiratory Rate Blood Pressure Pulse Oximetry 02/16/18 04:00 02/16/18 05:00 02/16/18 06:00 Temperature 98.9 F Pulse Rate 87 82 94 H Respiratory Rate 20 Blood Pressure 122/79 Pulse Oximetry 97 02/16/18 08:00 Temperature 98.4 F Pulse Rate 100 H Respiratory Rate 16 Blood Pressure 143/89 H Pulse Oximetry 99 Intake & Output 02/15/18 02/16/18 02/16/18 18:59 06:59 18:59 Intake Total 200 / 200 480 / 480 Balance 200 / 200 480 / 480 Intake: Oral 480 / 480 Anesthesia Amount 200 / 200 Other: # Voids 3 Date of Last Bowel Movement 02/14/18 02/14/18 02/16/18 # Bowel Movements 0 - Constitutional no acute distress - Routine HEENT Exam Head: Present: normocephalic - Routine Respiratory Exam Absent: accessory muscle use - Routine Skin Exam Absent: pallor - Routine Neurological Exam Present: alert, oriented X3 <Mili Khan - Last Filed: 02/16/18 12:18> Vital signs: Vital Signs 02/15/18 18:00 02/15/18 19:00 02/15/18 20:00 Temperature 99.3 F Pulse Rate 101 H 99 H 101 H Respiratory Rate 20 Blood Pressure 124/69 Pulse Oximetry 96 02/15/18 20:58 02/15/18 21:00 02/15/18 22:00 Temperature Pulse Rate 94 H 100 H Respiratory Rate Blood Pressure Pulse Oximetry 98 02/15/18 23:00 02/16/18 00:00 02/16/18 01:19 Temperature 99.4 F Pulse Rate 80 86 88 Respiratory Rate 20 Blood Pressure 117/70 Pulse Oximetry 99 02/16/18 02:00 02/16/18 03:00 02/16/18 04:00 Temperature 98.9 F Pulse Rate 90 84 87 Respiratory Rate 20 Blood Pressure 122/79 Pulse Oximetry 97 02/16/18 05:00 02/16/18 06:00 02/16/18 08:00 Temperature 98.4 F Pulse Rate 82 94 H 100 H Respiratory Rate 16 Blood Pressure 143/89 H Pulse Oximetry 99 Intake & Output 02/15/18 02/16/18 02/16/18 18:59 06:59 18:59 Intake Total 200 / 200 480 / 480 Balance 200 / 200 480 / 480 Intake: Oral 480 / 480 Anesthesia Amount 200 / 200 Other: # Voids 3 Date of Last Bowel Movement 02/14/18 02/14/18 02/16/18 # Bowel Movements 0 <Chuck Kasper - Last Filed: 02/17/18 08:24> Results - Labs CBC & Chem 7: 02/16/18 05:45 02/13/18 09:30 Laboratory Results - last 24 hr 02/15/18 02/16/18 02/16/18 13:49 05:45 05:45 WBC 10.0 RBC 2.97 L Hgb 8.8 L Hct 26.5 L MCV 89.2 MCH 29.5 MCHC 33.1 RDW 14.6 Plt Count 503 H MPV 7.6 Neut % (Auto) 75.8 H Lymph % (Auto) 11.5 [place] % (Auto) 10.9 H Eos % (Auto) 1.1 Baso % (Auto) 0.7 Neut # (Auto) 7.6 Lymph # (Auto) 1.2 [place] # (Auto) 1.1 H Eos # (Auto) 0.1 Baso # (Auto) 0.1 WBC Differential . Differential Comment Auto diff final POC Glucose 135 H Carcinoembryonic Ag 11.9 H Prostate Specific Ag 02/16/18 05:45 WBC RBC Hgb Hct MCV MCH MCHC RDW Plt Count MPV Neut % (Auto) Lymph % (Auto) [place] % (Auto) Eos % (Auto) Baso % (Auto) Neut # (Auto) Lymph # (Auto) [place] # (Auto) Eos # (Auto) Baso # (Auto) WBC Differential Differential Comment POC Glucose Carcinoembryonic Ag Prostate Specific Ag 1.40 <Mili Khan - Last Filed: 02/16/18 12:18> - Labs CBC & Chem 7: 02/16/18 05:45 02/13/18 09:30 Laboratory Results - last 24 hr 02/16/18 02/16/18 02/16/18 05:45 05:45 05:45 WBC 10.0 RBC 2.97 L Hgb 8.8 L Hct 26.5 L MCV 89.2 MCH 29.5 MCHC 33.1 RDW 14.6 Plt Count 503 H MPV 7.6 Neut % (Auto) 75.8 H Lymph % (Auto) 11.5 [place] % (Auto) 10.9 H Eos % (Auto) 1.1 Baso % (Auto) 0.7 Neut # (Auto) 7.6 Lymph # (Auto) 1.2 [place] # (Auto) 1.1 H Eos # (Auto) 0.1 Baso # (Auto) 0.1 WBC Differential . Differential Comment Auto diff final Carcinoembryonic Ag 11.9 H Prostate Specific Ag 1.40 <Chuck Kasper - Last Filed: 02/17/18 08:24> Assessment and Plan - Plan - Melena, heme (+) stools, anemia, ?metastatic disease. Recently diagnosed melanoma in his back status post excision several days ago, recently started on ASA and Brilinta presented to the ED with complaints of sharp constant abdominal discomfort associated with distention for the past several days. According to EMR "Recent PET scan concerning for metastatic disease. Outpatient abdominal CT showed abnormal appearance of the distal thoracic esophagus and GE junction which is hypermetabolic on recent PET and suspicious for a primary malignancy". Patient was seen in our office and was scheduled for EGD/colonoscopy next week with Dr. Roberson. GI consulted for melanotic stools and drop in hgb. He was also found to have heme (+) stools. Pt states a month ago, he noticed dark stools intermittently due to taking heavy doses of Ibuprofen but he discontinued this and hasn't had dark stools until yesterday. Abdominal x-ray done with no obstruction. - Recently diagnosed melanoma in his back status post excision several days ago by Dr. Meehan - ?metastatic disease. According to EMR "Recent PET scan concerning for metastatic disease. Outpatient abdominal CT showed abnormal appearance of the distal thoracic esophagus and GE junction which is hypermetabolic on recent PET and suspicious for a primary malignancy". - STEMI, V. fib arrest status post defibrillation and CPR, he is now s/p heart cath and stents, anticoagulated with ASA and Brilinta. 02/16/2018 No reported bleeding Patient's denies any difficulty swallowing meals 02/15/2018 EGD revealed the following findings- 1. Circumferential mass was found in the middle third of the esophagus and lower third esophagus; multiple biopsies were performed 2. Normal duodenal mucosa in the entire duodenum 3. Circumferential mass was found in the cardia and gastric fundus 4. Retroflexed views revealed Mass see in cardia and fundus,extending from esophagus next WBC 10.0 hemoglobin 8.8 hematocrit 26.5 platelet count 503 stable Plan Diet as tolerated Small bites of food, chew slowly Biopsies pending Patient will be following up with oncology EGD as needed Supportive care Patient stable from a GI standpoint for discharge This patient has been seen by myself and Dr. Kasper and this note is written on his behalf - Attending Attestation Dr. Kasper <Mili Khan - Last Filed: 02/16/18 12:18> - Attending Attestation The patient was seen and examined. Agree with above note. Awaiting final pathology. Referred to oncology. Patient to follow up as needed. We will sign off. <Chuck Kasper - Last Filed: 02/17/18 08:24>
--- NOTE | 2018-02-16 13:23 | P.DS ---
DS: Providers Date of admission: 02/12/18 21:24 Primary care physician: Jones Little MD Consults: 02/12/18 23:26 Consult to Hospitalist Routine Consulting Provider: Edward Hawk Preferred Eyelet Riveter:: Kulwant Mays Reason for Consultation: STEMI Notified:: Service Spoke with:: MICHAEL Date Notified:: 02/13/18 Time Notified:: 00:03 Comments:: Admit to [facility] service Ordering Provider: TIFFANY 02/13/18 06:27 HUB Only Consult Order Routine Consulting Provider: Srinath Pierce 02/14/18 11:26 Consult to Gastroenterology Routine Consulting Provider: Hero Sinha V Preferred Eyelet Riveter:: Stormy Roberson Reason for Consultation: melena- black stools strongly guiace + known to you with gastric mass- eentual plan for EGD- H and H drop from 11 to 9 this am admitted for stent - now on Plavis Notified:: Office Spoke with:: Amber Date Notified:: 02/14/18 Time Notified:: 11:32 Ordering Provider: PERLA 02/15/18 12:17 Consult to Oncology Routine Consulting Provider: Melvin Patel Reason for Consultation: ONCOLOGY CONSULT Notified:: Service Spoke with:: GAIL Date Notified:: 02/15/18 Time Notified:: 12:49 Ordering Provider: JESSICA 02/15/18 15:29 Consult to Radiation Oncology Routine Consulting Provider: Alfredo Trinidad Reason for Consultation: esophageal ca, GI bleeding on blood thinners for recent acute TN and stent. Notified:: Office Spoke with:: erica Date Notified:: 02/15/18 Time Notified:: 15:34 Ordering Provider: AMY Brief History from admission: This is a 62-year-old male with recently diagnosed melanoma in his back status post excision several days ago, GERD and kidney stones. He presents to the emergency department complaining of sharp constant abdominal discomfort associated with distention and for the past several days. Recent PET scan concerning for metastatic disease. Outpatient abdominal CT showed abnormal appearance of the distal thoracic esophagus and GE junction which is hypermetabolic on recent PET and suspicious for a primary malignancy. Patient scheduled for EGD next week by Dr. Roberson. In the ED, he developed sharp pain across his chest associated with diaphoresis and pallor. Stat EKG showed ST elevation in the inferior leads and lateral leads. Troponin 0.3. He also had a V. fib arrest status post defibrillation and CPR. Underwent emergent cardiac catheterization with stenting of the LAD and second diagonal by Dr. Pierce who requested medical service to admit the patient. At this time, patient is pain-free. He is tolerating diet passing gas and voiding without difficulty. He has ambulated in the room. Still has not had any bowel movement. Abdominal x-ray independently viewed by me with no obstruction. Chest x-ray independently reviewed by me with no acute cardiopulmonary disease. All other systems reviewed negative DS: Diagnosis Discharge Diagnosis (1) ST elevation (STEMI) myocardial infarction: Status: Acute DS: Summary This a 62-year-old male with recently diagnosed melanoma in his back status post excision several days ago, GERD and kidney stones. He presents to the emergency department complaining of sharp constant abdominal discomfort. Recent PET scan concerning for metastatic disease. Outpatient abdominal CT showed abnormal appearance of the distal thoracic esophagus and GE junction which is hypermetabolic on recent PET and suspicious for a primary malignancy. Patient scheduled for EGD next week by Dr. Roberson. Stat EKG showed ST elevation in the inferior leads and lateral leads. Troponin 0.3. Developed Vfib arrest Status post defibrillation and CPR. Underwent emergent cardiac catheterization with stenting of the LAD and second diagonal by Dr. Pierce. He will continue aspirin, Brilinta, Lopressor, nitrate, high-dose statin. EF 45% Abdominal pain and distention secondary to constipation with melena and anemia, there was a questionable Mass abdominal on CT per admission report done as OP CT , patient was supposed to follow-up with Dr. Roberson. Hemoglobin dropped. GI bleeding was considered. GI consulted, abdominal chest x-ray showed no obstruction. Patient was started on Protonix, status post EGD which showed a circumferential mass in the middle third of the esophagus and lower third esophagus and in the fundus and cardia. Biopsies done. Follow-up results as outpatient. Repeat hemoglobin stable. Oncology consulted. Discussed with oncology after consultation, recommendation is radiation oncolgy consultation for paliative radiotherapy to stop the bleeding, hold off on palliative chemotherapy for now due to acute TN and V. Fib arrest. Dr. Carias will see the patient in the office next week, patient also wants to go home and would not like to wait for radiation oncology. Patient will be discharged on the above medications and Protonix. Time Spent with Patient Total time spent providing and/or coordinating discharge services: Greater than 30 minutes Status at Discharge Functional status at discharge: independent ambulation Quality: VTE Deep Vein Thrombosis/Pulmonary Embolism Present on Admission: No Exam Narrative Exam Narrative: Not in distress, well-nourished, looks stated age Normal rate and regular rhythm, no murmurs gallops or rubs appreciated. Clear to auscultation and symmetric bilaterally, normal respiratory effort. Normal bowel sounds, soft, non-tender, nondistended, no guarding. Extremities without clubbing, cyanosis, or edema. AAO x3, no cranial nerve deficits, moves all 4 extremities, no focal neurologic deficits Normal mood, appropriate affect Results Pending studies at discharge: Pending at discharge 02/15/18 12:15 Surgical [PTH] Routine Labs on day of discharge: Labs from last 24 hours 02/16/18 02/16/18 02/16/18 05:45 05:45 05:45 WBC 10.0 RBC 2.97 L Hgb 8.8 L Hct 26.5 L MCV 89.2 MCH 29.5 MCHC 33.1 RDW 14.6 Plt Count 503 H MPV 7.6 Neut % (Auto) 75.8 H Lymph % (Auto) 11.5 Ector % (Auto) 10.9 H Eos % (Auto) 1.1 Baso % (Auto) 0.7 Neut # (Auto) 7.6 Lymph # (Auto) 1.2 Ector # (Auto) 1.1 H Eos # (Auto) 0.1 Baso # (Auto) 0.1 WBC Differential . Differential Comment Auto diff final POC Glucose Carcinoembryonic Ag 11.9 H Prostate Specific Ag 1.40 02/15/18 13:49 WBC RBC Hgb Hct MCV MCH MCHC RDW Plt Count MPV Neut % (Auto) Lymph % (Auto) Ector % (Auto) Eos % (Auto) Baso % (Auto) Neut # (Auto) Lymph # (Auto) Ector # (Auto) Eos # (Auto) Baso # (Auto) WBC Differential Differential Comment POC Glucose 135 H Carcinoembryonic Ag Prostate Specific Ag Impressions ITS Impressions Abdomen X-Ray 12/11/18 19:18 CONCLUSION: No acute findings. There is residual contrast in large bowel. Chest X-Ray 02/12/18 20:27 CONCLUSION: No acute findings. Discharge Plan Discharge Disposition Patient Disposition: 01 Discharge Home Discharge Condition Condition: Good Discharge Order Discharge Orders: Discharge Order (Routine); Ordered 02/16/18 Ordered By: Viraj Bagley Discharge Details Anticipated Discharge Date: 02/16/18 Physicians Team ED Provider: Danielle Dover Primary Care Provider: Jones Little Attending Provider: Viraj Bagley Other Providers: Srinath Pierce ; Hero Sinha V ; Melvin Patel ; Alfredo Salmon Rxs /Orders / Referrals /Forms Prescriptions: New atorvastatin 80 mg Tablet 80 mg PO HS Qty: 60 RF: 0 sennosides-docusate sodium [Senna Plus] 8.6-50 mg Tablet 1 tab PO BID Qty: 60 RF: 0 thiamine HCl (vitamin B1) 100 mg Tablet 100 mg PO DAILY Qty: 30 RF: 0 nitroglycerin [Nitrostat] 0.4 mg Tablet, Sublingual 0.4 mg Sublingual Q5M PRN (Reason: Chest Pain) Qty: 30 RF: 0 aspirin 81 mg Tablet,Chewable 81 mg PO DAILY Qty: 30 RF: 0 metoprolol tartrate 25 mg Tablet 25 mg PO BID Qty: 60 RF: 0 ticagrelor [Brilinta] 90 mg Tablet 90 mg PO BID Qty: 60 RF: 0 pantoprazole [Protonix] 40 mg tablet,delayed release (DR/EC) 40 mg PO BID 10 Days Qty: 60 RF: 0 Continue levothyroxine [Synthroid] 25 mcg Tablet 137 mcg PO DAILY RF: 0 losartan 25 mg Tablet PO DAILY RF: 0 Discontinued metoprolol tartrate 25 mg Tablet PO DAILY RF: 0 Referrals: Jones Little MD [Primary Care Provider] - See Instructions Srinath Pierce MD [Physician] - See Instructions ( 1 wk f/u) Discharge Instructions Additional Instructions: Dr. Carias's office will call early next week to set up an outpatient appointment for palliative radiation...[phone] Post Discharge Care Plan Care Plan Goals: Discharge Care Plan Goals for Heart Attack Directions to Meet your Goals: 1. Home Care: * Take your medicines exactly as directed. Dont skip doses. Talk with your doctor if your medicines aren't working for you. * Remember that recovery after a heart attack takes time. Plan to rest for at least 4 to 8 weeks while you recover. Then return to normal activity when your doctor says its OK. * Join a heart rehabilitation program if recommended by your doctor. This can help strengthen your heart and lungs and give you more energy and confidence. * Tell your doctor if you are feeling depressed. Feelings of sadness are common after a heart attack. But it is important to speak to someone or seek counseling if you are feeling overwhelmed by these feelings. * Call 911 right away if you have chest pain or pain that goes to your shoulder , neck, or back. Don't drive yourself to the hospital. * Ask your family members to learn CPR. This is an important skill that can save lives when it's needed. * Learn to take your own blood pressure and pulse. Keep a record of your results. 2. Diet: You may need to see a registered dietitian for help with these diet changes. These changes may include: * Cutting back on how much fat and cholesterol you eat * Cutting back on how much salt (sodium) you eat, especially if you have high blood pressure * Eating more fresh vegetables and fruits * Eating lean proteins such as fish, poultry, beans, and peas, and eating less red meat and processed meats * Using low-fat dairy products * Using vegetable and nut oils in limited amounts * Limiting how many sweets and processed foods such as chips, cookies, and baked goods you eat * Limiting how often you eat out. And when you do eat out, making better food choices. * Not eating fried or greasy foods, or foods high in saturated fat 3. Exercise and Activity: * Follow your doctor's directions on exercises and activity * If your doctor may recommends that you get moderate to vigorous physical activity, here are few examples of moderate to vigorous activity include: * Walking at a brisk pace, about 3 to 4 miles per hour * Jogging or running * Swimming or water aerobics * Hiking * Dancing * Martial arts * Tennis * Riding a bicycle or stationary bike 4. Lifestyle Modifications: * Weight Management: For Losing weight, making dietary changes and getting more exercise can help. A good goal is to lose your 10% of your body weight in one year. * Stop smoking. Sign up for a stop-smoking program to make it more likely for you to quit for good. You can join a stop-smoking support group. Or ask your doctor about nicotine replacement products. * Stress Management: Learn to manage stress. Stress management techniques to help you deal with stress in your home and work life. This will help you feel better emotionally and ease the strain on your heart. 5. Follow-Up: Do Not miss your follow-up appointment. Keep up with all your appointments and yearly check ups When to call your doctor: Call your doctor right away if you have: Lightheadedness, dizziness, or fainting Feeling of irregular heartbeat or fast pulse Call 911: Call 911 right away if you have: * Chest pain that goes to your neck, jaw, back, or shoulder * Shortness of breath Status ED Status: Left Department Discharge Information Discharge Date/Time: 02/16/18 11:45
== END 2018-02-16 11:45 | disposition home or self-care (01) ==
LOC: PHED 18:05 → HIMC 21:07 → PHEDA 21:24 → HIMC 23:25 → HCIS 02-13 21:04 → HCIN 02-15 12:06
PROVIDERS: ADMIT Hospitalist; ATTEND Hospitalist
PROC: PANENDO (2018-02-15 10:43)